=== PATIENT | female | born 1965 | race Hispanic/Latino ===

== ENCOUNTER 2018-02-19 15:27 | Inpatient (IN) | payer MEDICAID, MEDICARE, OTHER ==
[~2018-02-19] VITALS: Ht 152.4 cm; Wt 63.2 kg
[2018-02-19 16:05] LABS: APPEARANCE,URINE Clear (CLEAR); BILIRUBIN,URINE Negative (NEGATIVE); COLOR,URINE Yellow (YELLOW); GLUCOSE, URINE (UA) >=1000 mg/dL (NEGATIVE); KETONES,URINE 15 mg/dL (NEGATIVE); LEUKOCYTE ESTERASE ,URINE Negative (NEGATIVE); NITRATE,URINE Negative (NEGATIVE); OCCULT BLOOD,URINE Negative (NEGATIVE); PROTEIN,URINE Negative (NEGATIVE)
[2018-02-19 16:15] LABS: BASOPHILS % (AUTO) 1.1 % (0.0-5.0); EOSINOPHILS % (AUTO) 1.2 % (0.0-8.0); HEMATOCRIT 41.3 % (36-48); LYMPHOCYTES % (AUTO) 25.4 % (21.0-51.0); MEAN CORPUSCULAR HEMOGLOBIN 29.2 pg (27.0-33.0); MEAN CORPUSCULAR HGB CONC 34.3 g/dL (32.0-36.0); MEAN CORPUSCULAR VOLUME 85.3 fL (79-99); MONOCYTES % (AUTO) 6.6 % (3.0-13.0); NEUTROPHILS % (AUTO) 65.7 % (40.0-77.0); PLATELET COUNT (AUTO) 328 K/uL (130-400); RED BLOOD CELL COUNT(AUTO) 4.84 MIL/uL (4.00-5.50); RED CELL DISTRIBUTION WIDTH 13.6 % (11.0-15.5)
[2018-02-19 16:25] LABS: BACTERIA,URINE Rare /HPF (None Seen); RBC,URINE None Seen /HPF (0-1); WBC,URINE 0-1 /HPF (0-1)
[2018-02-19 16:28] LABS: CREATININE 0.6 mg/dL (0.5-1.5); POTASSIUM 3.6 mmol/L (3.5-5.1)
[2018-02-19 16:33] LABS: ALBUMIN 3.7 g/dL (3.5-5.0); BILIRUBIN,TOTAL 0.3 mg/dL (0.2-1.0)
[2018-02-19 19:15] VITALS: BP 114/74
[2018-02-19] MEDS ORDERED: METF10004 PO (20:16)
[2018-02-19] MEDS ORDERED: MELO-108 PO (20:16)
[2018-02-19] MEDS ORDERED: OMEP40CA37 PO (20:16)
[2018-02-19] MEDS ORDERED: SIMV10TA6 PO (20:16)
[2018-02-19] MEDS ORDERED: INVOK100TB PO (20:16)
[2018-02-19] MEDS ORDERED: TRAM-355 PO (20:16)
[2018-02-19] MEDS ORDERED: PARO-37 PO (20:16)
[2018-02-19] MEDS ORDERED: GABA-531 PO (20:16)
[2018-02-19] MEDS ORDERED: RANI150T7 PO (20:16)
[2018-02-19] MEDS ORDERED: DEXTROSE 50%-WATER 50 ML DISP.SYRIN IV PRN (20:45)
[2018-02-19] MEDS ORDERED: GLUCAGON 1MG KIT 1 MG ML IM PRN (20:45)
[2018-02-19] MEDS ORDERED: ONDANSETRON HCL 4 MG/2 ML VIAL IVP PRN (20:45)
[2018-02-19] MEDS: INSULIN R PO SSI SQ SCH (21:00)
[2018-02-19 21:54] LABS: CREATINE KINASE MB < 0.5 ng/mL (0.5-3.6); CREATINE KINASE, TOTAL 30 U/L (21-232); MYOGLOBIN 18 ng/mL (10-92); TROPONIN I < 0.04 ng/mL (0.00-0.06)
[2018-02-19] MEDS: FAMOTIDINE 20MG TAB 20 MG TAB PO SCH (22:35)
[2018-02-20] VITALS (7 sets, daily range): BP systolic 82–118; BP diastolic 59–72
[2018-02-20 06:15] LABS: MEAN CORPUSCULAR HEMOGLOBIN 29.3 pg (27.0-33.0); MEAN CORPUSCULAR HGB CONC 33.9 g/dL (32.0-36.0); MEAN CORPUSCULAR VOLUME 86.4 fL (79-99); PLATELET COUNT (AUTO) 310 K/uL (130-400); RED BLOOD CELL COUNT(AUTO) 4.51 MIL/uL (4.00-5.50); RED CELL DISTRIBUTION WIDTH 13.5 % (11.0-15.5); WHITE BLOOD COUNT (AUTO) 10.1 K/uL (4.8-10.8)
[2018-02-20] MEDS: INSULIN R PO SSI SQ SCH ×4 (06:16→20:30)
[2018-02-20 06:41] LABS: ALANINE AMINOTRANSFERASE 23 U/L (12-78); ALBUMIN 3.2 g/dL (3.5-5.0); ASPARTATE AMINOTRANSFERASE 14 U/L (10-37); BILIRUBIN,TOTAL 0.5 mg/dL (0.2-1.0); CARBON DIOXIDE 25 mmol/L (21-32); CHLORIDE 105 mmol/L (101-111); CREATINE KINASE MB < 0.5 ng/mL (0.5-3.6); CREATINE KINASE, TOTAL 22 U/L (21-232); CREATININE 0.6 mg/dL (0.5-1.5); GLOMERULAR FILTR. RATE CALC 112 mL/min (>60); GLUCOSE,RANDOM 121 mg/dL (70-105); MYOGLOBIN 24 ng/mL (10-92); POTASSIUM 3.9 mmol/L (3.5-5.1); SODIUM SERUM 140 mmol/L (136-145); TOTAL PROTEIN, SERUM 7.4 g/dL (6.0-8.3); TROPONIN I < 0.04 ng/mL (0.00-0.06); UREA NITROGEN, BLOOD 23 mg/dL (7-18)
[2018-02-20 07:29] LABS: ERYTHROCYTE SEDIMENTATION RATE 25 MM/HR (0-15)
[2018-02-20] MEDS: INVOKANA PO SCH (08:00)
[2018-02-20] MEDS ORDERED: PNEUMOCOCCAL VACCINE POLYVALENT 0.5 ML/VIAL [PPV] IM SCH (08:15)
[2018-02-20] MEDS: RANITIDINE HCL 15 MG/1 ML PO SCH ×2 (09:45→20:17)
[2018-02-20] MEDS: FAMOTIDINE 20MG TAB 20 MG TAB PO SCH ×2 (09:46→20:17)
[2018-02-20] MEDS: MELOXICAM 7.5 MG TABLET PO SCH (09:46)
[2018-02-20] MEDS: METFORMIN HCL 500 MG TABLET PO SCH ×2 (09:46→17:36)
[2018-02-20] MEDS: TRAMADOL /APAP 37.5MG/325MG TAB PO SCH ×2 (09:47→20:19)
[2018-02-20] MEDS: PANTOPRAZOLE SODIUM 40 MG TABLET.DR PO SCH (09:47)
[2018-02-20] MEDS: PAROXETINE HCL 20 MG TABLET PO SCH (12:00)
[2018-02-20] MEDS ORDERED: METOCLOPRAMIDE 10 MG/2 ML VIAL IVP PRN (12:00)
[2018-02-20 14:55] LABS: CREATINE KINASE MB < 0.5 ng/mL (0.5-3.6); CREATINE KINASE, TOTAL 24 U/L (21-232); MYOGLOBIN 23 ng/mL (10-92); TROPONIN I < 0.04 ng/mL (0.00-0.06)
[2018-02-20] MEDS ORDERED: SODIUM CHLORIDE 0.9% 500ML 500 ML IV SCH (15:00)
[2018-02-20] MEDS: ATORVASTATIN CALCIUM 10 MG TABLET PO SCH (20:17)
[2018-02-20] MEDS: GABAPENTIN 300 MG CAPSULE PO SCH (20:18)
[2018-02-20 21:56] LABS: CREATINE KINASE MB < 0.5 ng/mL (0.5-3.6); CREATINE KINASE, TOTAL 25 U/L (21-232); MYOGLOBIN 23 ng/mL (10-92); TROPONIN I < 0.04 ng/mL (0.00-0.06)
[2018-02-21] VITALS (7 sets, daily range): BP systolic 87–109; BP diastolic 61–76
[2018-02-21] MEDS: INSULIN R PO SSI SQ SCH ×4 (06:46→21:00)
[2018-02-21 06:58] LABS: BASOPHILS % (AUTO) 0.8 % (0.0-5.0); EOSINOPHILS % (AUTO) 2.6 % (0.0-8.0); HEMATOCRIT 37.9 % (36-48); LYMPHOCYTES % (AUTO) 38.9 % (21.0-51.0); MEAN CORPUSCULAR HEMOGLOBIN 29.6 pg (27.0-33.0); MONOCYTES % (AUTO) 6.7 % (3.0-13.0); PLATELET COUNT (AUTO) 291 K/uL (130-400); RED BLOOD CELL COUNT(AUTO) 4.36 MIL/uL (4.00-5.50); RED CELL DISTRIBUTION WIDTH 13.8 % (11.0-15.5); WHITE BLOOD COUNT (AUTO) 10.5 K/uL (4.8-10.8)
[2018-02-21 07:01] LABS: CREATININE 0.6 mg/dL (0.5-1.5); POTASSIUM 3.9 mmol/L (3.5-5.1)
[2018-02-21] MEDS: PANTOPRAZOLE SODIUM 40 MG TABLET.DR PO SCH (07:07)
[2018-02-21] MEDS: METFORMIN HCL 500 MG TABLET PO SCH (08:00)
[2018-02-21] MEDS: INVOKANA PO SCH (08:00)
[2018-02-21] MEDS ORDERED: SODIUM CHLORIDE 0.9% 500ML 500 ML IV SCH (12:00)
[2018-02-21] MEDS ORDERED: ISOVUE-370 50ML VIAL IV ONE (12:59)
[2018-02-21] MEDS: PAROXETINE HCL 20 MG TABLET PO SCH (13:33)
[2018-02-21] MEDS: FAMOTIDINE 20MG TAB 20 MG TAB PO SCH ×2 (13:34→20:43)
[2018-02-21] MEDS: TRAMADOL /APAP 37.5MG/325MG TAB PO SCH ×2 (13:34→20:43)
[2018-02-21] MEDS: RANITIDINE HCL 15 MG/1 ML PO SCH ×2 (13:34→20:43)
[2018-02-21] MEDS: MELOXICAM 7.5 MG TABLET PO SCH (13:39)
[2018-02-21 16:55] LABS: APPEARANCE,URINE Clear (CLEAR); BILIRUBIN,URINE Negative (NEGATIVE); COLOR,URINE Yellow (YELLOW); GLUCOSE, URINE (UA) >=1000 mg/dL (NEGATIVE); KETONES,URINE 40 mg/dL (NEGATIVE); LEUKOCYTE ESTERASE ,URINE Negative (NEGATIVE); NITRATE,URINE Negative (NEGATIVE); OCCULT BLOOD,URINE Negative (NEGATIVE); PH,URINE 6.5 (5.0-8.0); PROTEIN,URINE Negative (NEGATIVE)
[2018-02-21 17:04] LABS: BACTERIA,URINE Rare /HPF (None Seen); RBC,URINE 0-1 /HPF (0-1); SQUAMOUS EPITHELIAL CELL,UR Rare /HPF (0-2); WBC,URINE 0-1 /HPF (0-1); YEAST,URINE BUDDING Few /HPF (None Seen)
[2018-02-21] MEDS: GABAPENTIN 300 MG CAPSULE PO SCH (20:43)
[2018-02-21] MEDS: ATORVASTATIN CALCIUM 10 MG TABLET PO SCH (20:43)
[2018-02-22] VITALS: BP 114/77
[2018-02-22 03:45] VITALS: BP 110/67
[2018-02-22 05:06] LABS: MEAN CORPUSCULAR HEMOGLOBIN 30.2 pg (27.0-33.0); MEAN CORPUSCULAR VOLUME 86.2 fL (79-99); PLATELET COUNT (AUTO) 300 K/uL (130-400); RED BLOOD CELL COUNT(AUTO) 4.29 MIL/uL (4.00-5.50); RED CELL DISTRIBUTION WIDTH 13.4 % (11.0-15.5); WHITE BLOOD COUNT (AUTO) 9.2 K/uL (4.8-10.8)
[2018-02-22 05:23] LABS: BILIRUBIN,TOTAL 0.3 mg/dL (0.2-1.0); CREATININE 0.6 mg/dL (0.5-1.5); POTASSIUM 3.6 mmol/L (3.5-5.1); TOTAL PROTEIN, SERUM 6.9 g/dL (6.0-8.3)
[2018-02-22] MEDS: INSULIN R PO SSI SQ SCH (06:06)
[2018-02-22] MEDS: PANTOPRAZOLE SODIUM 40 MG TABLET.DR PO SCH (06:18)
[2018-02-22] MEDS: INVOKANA PO SCH (08:00)
[2018-02-22 08:02] VITALS: BP 107/66
[2018-02-22] MEDS: FAMOTIDINE 20MG TAB 20 MG TAB PO SCH (10:08)
[2018-02-22] MEDS: MELOXICAM 7.5 MG TABLET PO SCH (10:08)
[2018-02-22] MEDS: RANITIDINE HCL 15 MG/1 ML PO SCH (10:09)
[2018-02-22] MEDS: TRAMADOL /APAP 37.5MG/325MG TAB PO SCH (10:10)
[2018-02-22 11:54] VITALS: BP 107/73
== END 2018-02-22 14:10 | disposition home or self-care (01) | DRG 74 ==
LOC: EDH 15:27 → OBSVTOIN 18:25 → EDHIP 18:25 → 3BH 19:15
PROVIDERS: ADMIT Internal Medicine Nephrology; ATTEND Internal Medicine Nephrology
DX: G90.8 Other disorders of autonomic nervous system (principal); R55 Syncope and collapse; D72.829 Elevated white blood cell count, unspecified; E11.9 Type 2 diabetes mellitus without complications; E66.9 Obesity, unspecified; E78.5 Hyperlipidemia, unspecified; Z82.49 Family history of ischemic heart disease and other diseases of the circulatory system; Z83.3 Family history of diabetes mellitus; Z90.710 Acquired absence of both cervix and uterus; Z98.891 History of uterine scar from previous surgery; F32.9 Major depressive disorder, single episode, unspecified; F43.10 Post-traumatic stress disorder, unspecified; M19.011 Primary osteoarthritis, right shoulder; G51.0 Bell's palsy; Z68.27 Body mass index [BMI] 27.0-27.9, adult
CPT/HCPCS: 36415; 70450; 71045; 71270; 74176; 80048; 80053; 81001; 82533; 82550; 82553; 82948; 83874; 84484; 85025; 85027; 85651; 93005; 93306; 93880; J1815; J7040; Q0161; Q9967

== ENCOUNTER 2018-02-27 14:31 | Emergency (ER) | payer OTHER ==
[~2018-02-27 14:31] MED LIST: GABA-531 PO; INVOK100TB PO; MELO-108 PO; METF10004 PO; OMEP40CA37 PO; PARO-37 PO; RANI150T7 PO; SIMV10TA6 PO; TRAM-355 PO
[2018-02-27 14:52] LABS: BASOPHILS % (AUTO) 1.1 % (0.0-5.0); EOSINOPHILS % (AUTO) 1.5 % (0.0-8.0); HEMATOCRIT 41.1 % (36-48); LYMPHOCYTES % (AUTO) 31.9 % (21.0-51.0); MEAN CORPUSCULAR HGB CONC 33.5 g/dL (32.0-36.0); MEAN CORPUSCULAR VOLUME 86.5 fL (79-99); MONOCYTES % (AUTO) 5.5 % (3.0-13.0); PLATELET COUNT (AUTO) 327 K/uL (130-400); RED BLOOD CELL COUNT(AUTO) 4.75 MIL/uL (4.00-5.50); RED CELL DISTRIBUTION WIDTH 13.5 % (11.0-15.5); WHITE BLOOD COUNT (AUTO) 10.5 K/uL (4.8-10.8)
[2018-02-27 15:02] LABS: CREATININE 0.8 mg/dL (0.5-1.5); POTASSIUM 4.2 mmol/L (3.5-5.1)
[2018-02-27 15:24] LABS: ALBUMIN 3.6 g/dL (3.5-5.0); BILIRUBIN,TOTAL 0.5 mg/dL (0.2-1.0); TOTAL PROTEIN, SERUM 7.9 g/dL (6.0-8.3)
[2018-02-27 15:44] LABS: CREATINE KINASE MB < 0.5 ng/mL (0.5-3.6); CREATINE KINASE, TOTAL 47 U/L (21-232)
[2018-02-27 15:55] LABS: INR 0.91 (0.85-1.15); PARTIAL THROMBOPLASTIN TIME 26.6 SEC (26.3-35.5); PROTHROMBIN TIME 9.6 SEC (9.6-11.6)
[2018-02-27 16:13] LABS: BILIRUBIN,URINE Negative (NEGATIVE); COLOR,URINE Yellow (YELLOW); GLUCOSE, URINE (UA) Negative (NEGATIVE); KETONES,URINE Negative (NEGATIVE); LEUKOCYTE ESTERASE ,URINE Negative (NEGATIVE); NITRATE,URINE Negative (NEGATIVE); OCCULT BLOOD,URINE Negative (NEGATIVE); PH,URINE 6.5 (5.0-8.0); PROTEIN,URINE Trace (NEGATIVE)
[2018-02-27 16:15] LABS: APPEARANCE,URINE Cloudy (CLEAR)
[2018-02-27 16:21] LABS: AMPHET/METH SCREEN,URINE NEGATIVE (NEGATIVE); BARBITURATE SCREEN, URINE NEGATIVE (NEGATIVE); BENZODIAZEPINES SCREEN,URINE POSITIVE (NEGATIVE); CANNABINOID SCREEN,URINE POSITIVE (NEGATIVE); COCAINE SCREEN,URINE NEGATIVE (NEGATIVE); OPIATE SCREEN,URINE NEGATIVE (NEGATIVE); PHENCYCLIDINE SCREEN,URINE NEGATIVE (NEGATIVE)
[2018-02-27 16:27] LABS: AMORPHOUS SEDIMENT,UR Moderate /LPF (None Seen); BACTERIA,URINE Few /HPF (None Seen); RBC,URINE None Seen /HPF (0-1); SQUAMOUS EPITHELIAL CELL,UR 50-100 /HPF (0-2); WBC,URINE None Seen /HPF (0-1)
== END 2018-02-27 18:03 | disposition home or self-care (01) ==
LOC: EDH 14:31
DX: R53.1 Weakness (principal); E11.9 Type 2 diabetes mellitus without complications; F43.10 Post-traumatic stress disorder, unspecified; Z79.82 Long term (current) use of aspirin; Z79.899 Other long term (current) drug therapy
CPT/HCPCS: 36415; 80053; 80305; 81001; 82550; 82553; 84484; 85025; 85610; 85730; 93005

== ENCOUNTER → 2018-07-04 | Outpatient (CLI) | payer OTHER ==
[~2018-07-04] MED LIST changes: +METF-446 PO; -METF10004 PO
== END | disposition home or self-care (01) ==
LOC: OIH 16:46
PROVIDERS: ATTEND Family Medicine
DX: E78.5 Hyperlipidemia, unspecified (principal); M54.2 Cervicalgia; M25.512 Pain in left shoulder; M25.511 Pain in right shoulder
CPT/HCPCS: 71046; 72040; 73030

== ENCOUNTER → 2018-11-03 | Outpatient (CLI) | payer OTHER | END | disposition home or self-care (01) | LOC: RAH 10:28 | PROVIDERS: ATTEND Family Medicine | DX: M19.012 Primary osteoarthritis, left shoulder (principal) | CPT/HCPCS: 73221 ==

== ENCOUNTER → 2019-01-27 | Outpatient (CLI) | payer OTHER | END | disposition home or self-care (01) | LOC: RAH 09:25 | PROVIDERS: ATTEND Family Medicine | DX: Z12.31 Encounter for screening mammogram for malignant neoplasm of breast (principal); K76.0 Fatty (change of) liver, not elsewhere classified; Z90.710 Acquired absence of both cervix and uterus; Z78.0 Asymptomatic menopausal state | CPT/HCPCS: 76700; 76856; 77067 ==

== ENCOUNTER → 2022-07-15 | Outpatient (CLI) | payer OTHER, MEDICARE ==
[~2022-07-15] MED LIST changes: +OMEP40CA21 PO; -OMEP40CA37 PO; -SIMV10TA6 PO; +SIMV10TA97 PO
== END | disposition home or self-care (01) ==
LOC: RAH 10:10
PROVIDERS: ATTEND Internal Medicine Gastroenterology
DX: R14.0 Abdominal distension (gaseous) (principal)
CPT/HCPCS: 78264; A9541

== ENCOUNTER → 2023-01-12 | Outpatient (CLI) | payer OTHER, MEDICARE ==
[~2023-01-12] MED LIST changes: +REGADENOSON 0.4 MG/5 ML PF SYG IVP ONE
== END | disposition home or self-care (01) ==
LOC: SHCH 08:09
PROVIDERS: ATTEND Internal Medicine Cardiovascular Disease
DX: Z01.810 Encounter for preprocedural cardiovascular examination (principal); K44.9 Diaphragmatic hernia without obstruction or gangrene; I95.1 Orthostatic hypotension; E78.5 Hyperlipidemia, unspecified; E11.43 Type 2 diabetes mellitus with diabetic autonomic (poly)neuropathy; K31.84 Gastroparesis; Z79.4 Long term (current) use of insulin; Z95.818 Presence of other cardiac implants and grafts; Z79.899 Other long term (current) drug therapy
CPT/HCPCS: 78452; 96374; 93017; J2785; A9500 ×2

== ENCOUNTER 2023-05-25 09:46 | Day surgery (SDC) | payer OTHER, MEDICARE ==
[~2023-05-25] VITALS: Ht 149.9 cm; Wt 60.3 kg
[~2023-05-25 09:46] MED LIST changes: +BISA-151 PO; +ERGO500093 PO; +FAMO40TA7 PO; -GABA-531 PO; -INVOK100TB PO; +LUBI24CA9 PO; -MELO-108 PO; +MIDO5TAB4 PO; -OMEP40CA21 PO; +ONDA4TAB10 PO; -PARO-37 PO; -RANI150T7 PO; -REGADENOSON 0.4 MG/5 ML PF SYG IVP ONE; +ROSU5TAB12 PO; -SIMV10TA97 PO; -TRAM-355 PO
[2023-05-25 11:19] VITALS: BP 118/65; PULSE 74; RESP 16
[2023-05-25] MEDS ORDERED: PROPOFOL 10 MG/ML 20ML VIAL IV ONE (13:26)
== END 2023-05-25 14:15 ==
LOC: DAH 09:46 → ENDO 09:46
PROVIDERS: ATTEND Internal Medicine Gastroenterology
DX: R10.816 Epigastric abdominal tenderness (principal); K31.89 Other diseases of stomach and duodenum; K31.84 Gastroparesis; K29.50 Unspecified chronic gastritis without bleeding; F41.9 Anxiety disorder, unspecified; E11.9 Type 2 diabetes mellitus without complications; M19.90 Unspecified osteoarthritis, unspecified site; K21.9 Gastro-esophageal reflux disease without esophagitis; E78.00 Pure hypercholesterolemia, unspecified; F32.A Depression, unspecified; E78.5 Hyperlipidemia, unspecified; I10 Essential (primary) hypertension; Z90.49 Acquired absence of other specified parts of digestive tract; Z90.710 Acquired absence of both cervix and uterus; Z79.899 Other long term (current) drug therapy; Z98.890 Other specified postprocedural states; Z86.010 Personal history of colon polyps; Z79.84 Long term (current) use of oral hypoglycemic drugs
CPT/HCPCS: 82948; 43239; J2704; A4215 ×2; A4223; A7002; A4222; A4221; A4663; A4216; J7030; A4606; J3490

== ENCOUNTER 2024-05-25 05:59 | Day surgery (SDC) | payer OTHER, MEDICARE ==
[~2024-05-25] VITALS: Ht 152.4 cm; Wt 60.3 kg
[2024-05-25] VITALS (11 sets, daily range): BP systolic 94–112; BP diastolic 44–85; PULSE 72–86; RESP 14–16; TEMP 96.5–97.8
[~2024-05-25 05:59] MED LIST changes: -BISA-151 PO; +CELE-146 PO; +CITA-108 PO; +CYAN-106 PO; +EMPA25TA PO; -ERGO500093 PO; +GABA-529 PO; +LINA145C PO; -LUBI24CA9 PO; +OMEP20CA12 PO; +ONDA-243 PO; -ONDA4TAB10 PO; -ROSU5TAB12 PO; +ROSU5TAB43 PO; +SUCR1TAB2 PO
[2024-05-25] MEDS: 0.9%NACL 1000ML 1,000 ML IV ONE (07:06)
[2024-05-25] MEDS ORDERED: proPOFol 10 MG/ML 20ML VIAL IV ONE ×2 (07:45→08:11)
[2024-05-25] MEDS ORDERED: LIDOCAINE PF 100MG/5ML (2%) SYRINGE 5ML ONE (07:46)
== END 2024-05-25 09:20 | disposition home or self-care (01) ==
LOC: DAH 05:59 → ENDO 05:59
PROVIDERS: ATTEND Internal Medicine Gastroenterology
DX: R10.816 Epigastric abdominal tenderness (principal); K29.50 Unspecified chronic gastritis without bleeding; K22.89 Other specified disease of esophagus; K31.89 Other diseases of stomach and duodenum; F41.9 Anxiety disorder, unspecified; M19.90 Unspecified osteoarthritis, unspecified site; F32.A Depression, unspecified; K21.9 Gastro-esophageal reflux disease without esophagitis; K31.84 Gastroparesis; K44.9 Diaphragmatic hernia without obstruction or gangrene; E78.00 Pure hypercholesterolemia, unspecified; Z90.49 Acquired absence of other specified parts of digestive tract; Z90.710 Acquired absence of both cervix and uterus; Z98.891 History of uterine scar from previous surgery; Z98.890 Other specified postprocedural states; Z98.49 Cataract extraction status, unspecified eye; Z79.899 Other long term (current) drug therapy; Z98.0 Intestinal bypass and anastomosis status
CPT/HCPCS: 43239; 82948 ×2; J7030; J2001; J2704 ×2; A4620; A4215 ×2; A4223; A4222; A4221; A4663; A4606; J3490

== ENCOUNTER → 2024-07-24 | Outpatient (CLI) | payer OTHER, MEDICARE ==
[~2024-07-24] MED LIST changes: -ROSU5TAB43 PO; +ROSU5TAB51 PO
== END | disposition home or self-care (01) ==
LOC: LAB 14:30
PROVIDERS: ATTEND Internal Medicine Cardiovascular Disease
DX: G90.9 Disorder of the autonomic nervous system, unspecified (principal); I95.1 Orthostatic hypotension; Z11.59 Encounter for screening for other viral diseases; Z79.899 Other long term (current) drug therapy
CPT/HCPCS: 36415; 82607; 86592

== ENCOUNTER 2024-11-02 06:18 | Day surgery (SDC) | payer OTHER, MEDICARE ==
[2024-11-02] VITALS (10 sets, daily range): BP systolic 91–112; BP diastolic 45–65; PULSE 67–93; RESP 14–17; TEMP 97.1–207.7
[~2024-11-02] VITALS: Ht 152.4 cm; Wt 59.0 kg
[~2024-11-02 06:18] MED LIST changes: -GABA-529 PO; +GABA300C PO; -LINA145C PO; -METF-446 PO; +METF-527 PO; -ONDA-243 PO; -SUCR1TAB2 PO
[2024-11-02] MEDS: 0.9%NACL 1000ML 1,000 ML IV ONE (07:59)
[2024-11-02] MEDS ORDERED: proPOFol 10 MG/ML 20ML VIAL IV ONE (08:50)
== END 2024-11-02 10:15 | disposition home or self-care (01) ==
LOC: DAH 06:18 → ENDO 06:18
PROVIDERS: ATTEND Surgery
DX: K30 Functional dyspepsia (principal); K29.50 Unspecified chronic gastritis without bleeding; K44.9 Diaphragmatic hernia without obstruction or gangrene; K31.84 Gastroparesis; K59.04 Chronic idiopathic constipation; K22.89 Other specified disease of esophagus; K31.89 Other diseases of stomach and duodenum; E11.9 Type 2 diabetes mellitus without complications; M19.90 Unspecified osteoarthritis, unspecified site; E78.00 Pure hypercholesterolemia, unspecified; K21.9 Gastro-esophageal reflux disease without esophagitis; F41.9 Anxiety disorder, unspecified; Z90.49 Acquired absence of other specified parts of digestive tract; Z90.710 Acquired absence of both cervix and uterus; Z79.899 Other long term (current) drug therapy
CPT/HCPCS: 82948 ×2; 43239; J7030 ×2; J2704; A4620; A4215; A4223; A7002; A4222; A4221; A4663; A4606; J3490

== ENCOUNTER 2025-07-08 16:22 | Inpatient (IN) | payer OTHER, MEDICAID ==
[~2025-07-08] VITALS: Ht 152.4 cm; Wt 58.4 kg
[2025-07-08 16:34] LABS: IMMATURE GRANULOCYTE ABSOLUTE 0.04 K/uL (0-1); NUCLEATED RED BLOOD CELLS 0.0 % (0.0-0.19); PLATELET COUNT (AUTO) 317 K/uL (130-400); RED BLOOD CELL COUNT(AUTO) 4.40 MIL/uL (4.00-5.50); RED CELL DISTRIBUTION WIDTH 13.0 % (11.0-15.5); WHITE BLOOD COUNT (AUTO) 10.6 K/uL (4.8-10.8)
--- NOTE | 2025-07-08 16:56 | ERN ---
General Chief Complaint: Other Problems Stated Complaint: LOW BLOOD PRESSURE Time Seen by MD: 16:24 Source: patient History of Present Illness Initial Comments Patient is a 60-year-old female coming in complaining of generalized body weakness. Family members brought the patient in as she became unresponsive. She states that she became hypotensive in his here for further evaluation. She does has a history of diabetes mellitus. Allergies: Coded Allergies: No Allergy Information Available (Verified Allergy, Unknown, 02/19/18) No Known Drug Allergies (Unverified Allergy, Unknown, 02/19/23) Home Meds Reported Medications Gabapentin (Neurontin) 300 Mg Capsule, 300 MG PO HS, CAP 11/01/24 Empagliflozin (Jardiance) 25 Mg Tablet, 1 TAB PO DAILY for 30 Days, #30 TAB 0 Refills 11/01/24 Metformin HCl (Metformin HCl ER) 1,000 Mg Tab.er.24, 1000 MG PO BID 11/01/24 Citalopram Hydrobromide (Citalopram HBr) 40 Mg Tablet, 40 MG PO DAILY, TAB 05/10/24 Celecoxib (Celecoxib) 100 Mg Capsule, 100 MG PO BID PRN for PAIN, CAP 05/10/24 Famotidine (Famotidine) 40 Mg Tablet, 40 MG PO HS, TAB 05/10/24 Cyanocobalamin (Vitamin B-12) (Vitamin B12) 1,000 Mcg Tablet, 1000 MCG PO DAILY, TAB 05/10/24 Rosuvastatin Calcium (Rosuvastatin Calcium) 5 Mg Tablet, 5 MG PO HS, TAB 05/10/24 Omeprazole (Omeprazole) 20 Mg Capsule.dr, 20 MG PO DAILY, CAP 05/10/24 Midodrine HCl (Midodrine HCl) 5 Mg Tablet, 5 MG PO BID, TAB 02/19/23 Past Medical History Past Medical History: Arthritis, Diabetes-Type II Medical History Other: ORTHOSTATIC HYPOTENSION Past Surgical History: None ROS Dictation CONSTITUTIONAL: No chills, no fever, no weakness, no diaphoresis, no malaise. HEAD/FACE: No signs of trauma. EENT: No eye pain, no blurred vision, no tearing, no double vision, no ear pain, no ear discharge, no nose pain, no nasal congestion, no throat pain, no throat swelling, no mouth pain. RESPIRATORY: No cough, no orthopnea, no SOB, no stridor, no wheezing. CARDIOVASCULAR: No chest pain, no edema, no palpitations, no syncope. GASTROINTESTINAL/ABDOMINAL: No abdominal pain, no constipation, no diarrhea, no nausea, no vomiting. GENITOURINARY: No abnormal discharge, no dysuria, no frequent urination, no hematuria. No complaints of pain in the genitals. MUSCULOSKELETAL: No back pain, no gout, no joint pain, no joint swelling, no muscle pain, no muscle stiffness, no neck pain. INTEGUMENTARY: No change in color, no change in hair/nails, no dryness, no lesion, no lumps, no rash. NEUROLOGICAL/PSYCH: No anxiety, not depressed, no emotional problem, no headache, no numbness, no pre-existing deficit, no history of seizures, no tremors, no weakness. HEMATOLOGIC/LYMPHATIC: Not anemic, no history of blood clots, no apparent bleed ing, no bruising, glands not swollen. All Systems Negative, Except as Noted. Physical Exam Physical Exam Dictation VITAL SIGNS: Reviewed. GENERAL APPEARANCE: Alert, oriented x3, no acute distress, obese. HEAD AND FACE: Non-traumatic. EYES: PERRL, pink conjunctivas, eyelid no trauma, anterior chamber clear. EARS: Pinnas intact and no signs of trauma or erythema. Ear canals clear and no discharge. TMs no erythema. NOSE: No discharge, no bleeding. OROPHARYNX: Mouth normal, teeth no caries, tongue pink. Pharynx clear, no erythema. Tonsils no exudates, no abscesses noted. Mucous membrane moist. NECK: Supple, non-tender, no thyromegaly, no masses, no JVD, no bruits. BREAST: Deferred. CHEST: No tenderness, no crepitus, no paradoxical movement, no retractions. LUNGS: Clear, well-ventilated, symmetric, no rales, no wheezing, no rhonchi, no stridor, good breath sounds bilaterally. HEART: Regular rate, regular rhythm, no murmur, no gallops. VASCULAR: No peripheral edema. ABDOMEN: Soft, positive bowel sounds, nondistended, no guarding, nontender, no rebound, no masses no hepatomegaly, no splenomegaly, no Pillai's sign, no hernias. RECTAL: Deferred. GENITAL: Deferred. NEUROLOGICAL: Normal speech, gross motor function intact, gross sensory function intact. MUSCULOSKELETAL: Neck nontender, full range of motion, back nontender, full range of motion. EXTREMITIES: Nontender, full range of motion. SKIN: Color pink, dry, no turgor, no rash, no lacerations, no abrasions, no contusions. LYMPHATICS: Deferred. Results Laboratory and Microbiology Lab and Micro Result Laboratory Tests Test 07/08/25 16:28 07/08/25 18:10 White Blood Count 10.6 K/uL (4.8-10.8) Red Blood Count 4.40 MIL/uL (4.00-5.50) Hemoglobin 13.2 g/dL (12.0-16.0) Hematocrit 40.9 % (36-48) Mean Corpuscular Volume 93.0 fL (79-99) Mean Corpuscular Hemoglobin 30.0 pg (27.0-33.0) Mean Corpuscular Hemoglobin Concent 32.3 g/dL (32.0-36.0) Red Cell Distribution Width 13.0 % (11.0-15.5) Platelet Count 317 K/uL (130-400) Mean Platelet Volume 9.7 fL (7.5-10.5) Immature Granulocyte % (Auto) 0.4 % (0-1) Neutrophils (%) (Auto) 57.2 % (40.0-77.0) Lymphocytes (%) (Auto) 32.4 % (21.0-51.0) Monocytes (%) (Auto) 6.1 % (3.0-13.0) Eosinophils (%) (Auto) 3.1 % (0.0-8.0) Basophils (%) (Auto) 0.8 % (0.0-5.0) Neutrophils # (Auto) 6.1 K/uL (1.8-7.7) Lymphocytes # (Auto) 3.4 K/uL (1.0-4.8) Monocytes # (Auto) 0.7 K/uL (0.1-1.0) Eosinophils # (Auto) 0.33 K/uL (0.00-0.70) Basophils # (Auto) 0.09 K/uL (0.00-0.20) Absolute Immature Granulocyte (auto 0.04 K/uL (0-1) Nucleated Red Blood Cells 0.0 % (0.0-0.19) Activated Partial Thromboplast Time 25.9 SEC (26.3-35.5) L Sodium Level 141 mmol/L (136-145) Potassium Level 4.1 mmol/L (3.5-5.1) Chloride Level 103 mmol/L (101-111) Carbon Dioxide Level 28 mmol/L (21-32) Blood Urea Nitrogen 15 mg/dL (7-18) Creatinine 0.5 mg/dL (0.5-1.0) Glomerular Filtration Rate Calc 109 mL/min (>90) Random Glucose 177 mg/dL (70-105) H Total Calcium 9.0 mg/dL (8.5-10.1) Magnesium Level 2.10 mg/dL (1.80-2.40) Total Creatine Kinase 26 U/L (21-232) # Troponin I High Sensitivity < 4 ng/L (4-50) L Urine Color LIGHT-YELLOW (YELLOW) Urine Appearance CLEAR (CLEAR) Urine pH 6.0 (5.0-8.0) Urine Specific [place] 1.016 (1.001-1.031) Urine Protein NEGATIVE mg/dL (NEGATIVE) Urine Glucose (UA) >=1000 mg/dL (NEGATIVE) H Urine Ketones NEGATIVE mg/dL (NEGATIVE) Urine Occult Blood NEGATIVE (NEGATIVE) Urine Nitrate NEGATIVE (NEGATIVE) Urine Bilirubin NEGATIVE mg/dL (NEGATIVE) Urine Urobilinogen 0.2 mg/dL (0.2-1.0) Urine Leukocyte Esterase NEGATIVE [place]/uL Urine RBC 0-1 /HPF (0-1) Urine WBC 0-1 /HPF (0-1) Urine Squamous Epithelial Cells RARE /HPF (0-2) Urine Bacteria RARE /HPF (None Seen) Urine Opiates Screen NEGATIVE (NEGATIVE) Urine Barbiturates Screen NEGATIVE (NEGATIVE) Urine Phencyclidine Screen NEGATIVE (NEGATIVE) Urine Amphetamines Screen NEGATIVE (NEGATIVE) Urine Benzodiazepines Screen NEGATIVE (NEGATIVE) Urine Cocaine Screen NEGATIVE (NEGATIVE) Urine Marijuana (THC) Screen NEGATIVE (NEGATIVE) Labs Reviewed?: Yes EKG/XRAY/US/CT/MRI EKG Comment 07/08/2025 time 4:28 p.m. Ventricular rate 74 Sinus rhythm [place] [address] wave elevation or depression X-RAY Comment IMAGING REPORT Signed PATIENT: ANAMIKA LEDEZMA MR#: [id number] : 1965 SEX: F AGE: 60 LOCATION: [facility] ORDER 24 STATUS: [facility] REPORT#: [id number] SERVICE 23 REASON: cp ORDERING PHYSICIAN: MARGIE ALVARADO MD PROCEDURE: CXR1VW - CHEST 1VW EXAM: CR Chest, 1 View. CLINICAL HISTORY: cp COMPARISON: None provided. FINDINGS: LUNGS: The lungs show no infiltrate or other acute finding. PLEURAL SPACES: No evidence of pleural effusion or pneumothorax. MEDIASTINUM: The cardiomediastinal silhouette is within normal limits. BONES: No aggressive appearing osseous lesion seen. IMPRESSION: No acute cardiopulmonary pathology is evident. /[place] DICTATED BY: BOBBY SANTAMARIA MD DATE: 07/08/251832 ELECTRONICALLY SIGNED BY: BOBBY SANTAMARIA MD DATE: 07/08/251832 CT Scan Comment IMAGING REPORT Signed PATIENT: ANAMIKA LEDEZMA MR#: [id number] : 1965 SEX: F AGE: 60 LOCATION: ED ORDER 03 STATUS: [facility] REPORT#: [id number] SERVICE 02 REASON: headache ORDERING PHYSICIAN: MARGIE ALVARADO MD PROCEDURE: HEAD WO - CT HEAD/BRAIN W/O CONTRAST EXAM: CT Head Without IV contrast. CLINICAL HISTORY: headache TECHNIQUE: Axial computed tomography images of the head/brain without intravenous contrast. COMPARISON: None provided. FINDINGS: BRAIN: No evidence of acute hemorrhage. No mass lesion. No CT evidence for acute territorial infarct. No midline shift or extra-axial collections. VENTRICLES: No hydrocephalus. ORBITS: The orbits are unremarkable. SINUSES AND MASTOIDS: The paranasal sinuses and mastoid air cells are clear. BONES: No fracture. SOFT TISSUES: Unremarkable. IMPRESSION: No acute intracranial abnormality. /[place] DICTATED BY: BOBBY SANTAMARIA MD DATE: 07/08/251833 ELECTRONICALLY SIGNED BY: BOBBY SANTAMARIA MD DATE: 07/08/251833 [facility] MDM: Differential diagnosis: Syncope, hypotension, Rationale: Tests considered and ordered secondary to shared decision making include: Previous outside records reviewed: Old ER visits. Risk of complication and/or morbidity or mortality of patient management: None Medications-Per medication reconciliation Need for hospitalization: Patient does meet criteria for hospitalization. Need for emergency major/minor surgery: No There are no social concerns with this patient. Prescription drug management Prescriptions will include symptomatic care Patient's prior external medical records from other ER visits were reviewed by me as indicated. Prior testing and results from previous visits were reviewed. Prior tests were taken into account with medical decision making and resource utilization, independent historian/historians were used to obtain complete medical history. I independently interpreted the test that were performed, results were reviewed by me and considered findings on radiology if ordered. Medical management and examination interpretation discussions were had by me with other qualified healthcare professionals as indicated for the patient's care. In his is a 60-year-old female coming in after she passed out. Family members brought patient in upon evaluation in triage patient was stay out due to a syncopal episode and hypotension. With these findings patient will be admitted under the care of [facility] for ongoing evaluation and management. ED Course Orders Procedure Category Date Status Time Cbc With Differential LAB 07/08/25 Complete 16:24 Chest 1vw RAD 07/08/25 Resulted 16:24 12 Lead Ekg Tracing- EKG 07/08/25 Logged Technical 16:24 Magnesium LAB 07/08/25 Complete 16:24 Creatine Kinase, Total LAB 07/08/25 Complete 16:24 Troponin I High LAB 07/08/25 Complete Sensitivity 16:24 Urinalysis Profile LAB 07/08/25 Complete 16:24 Partial LAB 07/08/25 Complete Thromboplastin Time 16:24 Basic Metabolic Panel LAB 07/08/25 Complete 16:24 0.9%Nacl 1000ml (Ns PHA 07/08/25 Complete 1000ml) 16:30 Drug Screen Urine LAB 07/08/25 Complete 16:24 Ct Head/Brain W/O CT 07/08/25 Resulted Contrast 17:03 Current Medications Medications (Trade) Dose Ordered Sig/Keila Route PRN Reason Start Time Stop Time Status Last Admin Dose Admin Sodium Chloride 1,000 ml @ 0 mls/hr ONCE ONCE IV 07/08/25 16:30 07/08/25 16:31 DC 07/08/25 17:22 Vital Signs Date Time Temp Pulse Resp B/P (MAP) Pulse Ox O2 Delivery O2 Flow Rate FiO2 07/08/25 17:32 98.2 72 15 112/56 97 Room Air* 0 21 07/08/25 16:24 97.9 85 18 138/56 100 Room Air 0 DX & DISP Disposition: Inpatient Decision to Admit Time: 18:38 Departure Impression: Primary Impression: Hypotension Additional Impression: Syncope Condition: Stable Referrals: JUNIOR SMILEY MD (PCP) MARGIE ALVARADO MD Jul 08, 2025 16:56
[2025-07-08 16:59] LABS: CREATININE 0.5 mg/dL (0.5-1.0); GLOMERULAR FILTR. RATE CALC 109.0 mL/min (>90); GLUCOSE,RANDOM 177.0 mg/dL (70-105); SODIUM SERUM 141.0 mmol/L (136-145); UREA NITROGEN, BLOOD 15.0 mg/dL (7-18)
[2025-07-08 17:08] LABS: CREATINE KINASE, TOTAL 26.0 U/L (21-232)
[2025-07-08] MEDS: 0.9%NACL 1000ML 1,000 ML IV ONE (17:22)
--- NOTE | 2025-07-08 17:34 | HMCIMG ---
EXAM: CR Chest, 1 View. CLINICAL HISTORY: cp COMPARISON: None provided. FINDINGS: LUNGS: The lungs show no infiltrate or other acute finding. PLEURAL SPACES: No evidence of pleural effusion or pneumothorax. MEDIASTINUM: The cardiomediastinal silhouette is within normal limits. BONES: No aggressive appearing osseous lesion seen. IMPRESSION: No acute cardiopulmonary pathology is evident. /[place]
--- NOTE | 2025-07-08 17:34 | HMCIMG ---
EXAM: CT Head Without IV contrast. CLINICAL HISTORY: headache TECHNIQUE: Axial computed tomography images of the head/brain without intravenous contrast. COMPARISON: None provided. FINDINGS: BRAIN: No evidence of acute hemorrhage. No mass lesion. No CT evidence for acute territorial infarct. No midline shift or extra-axial collections. VENTRICLES: No hydrocephalus. ORBITS: The orbits are unremarkable. SINUSES AND MASTOIDS: The paranasal sinuses and mastoid air cells are clear. BONES: No fracture. SOFT TISSUES: Unremarkable. IMPRESSION: No acute intracranial abnormality. /[place]
[2025-07-08 18:23] LABS: ADD UA MICROSCOPIC YES; APPEARANCE,URINE CLEAR (CLEAR); GLUCOSE, URINE (UA) >=1000 mg/dL (NEGATIVE); LEUKOCYTE ESTERASE ,URINE NEGATIVE Leu/uL (NEGATIVE); NITRATE,URINE NEGATIVE (NEGATIVE); OCCULT BLOOD,URINE NEGATIVE (NEGATIVE)
[2025-07-08 18:24] LABS: SQUAMOUS EPITHELIAL CELL,UR RARE /HPF (0-2)
[2025-07-08 18:27] LABS: AMPHET/METH SCREEN,URINE NEGATIVE (NEGATIVE); BARBITURATE SCREEN, URINE NEGATIVE (NEGATIVE); CANNABINOID SCREEN,URINE NEGATIVE (NEGATIVE); COCAINE SCREEN,URINE NEGATIVE (NEGATIVE)
--- NOTE | 2025-07-08 20:52 | HP ---
[facility] HISTORY & PHYSICAL Date Patient Seen: Jul 08, 2025 Time of Visit: 20:43 Supervising Physician: Dr. Michaela Mckeon Primary Care Physician: Yari Palm Outpatient Specialists: [ ] Inpatient Consults: [ ] PROBLEM LIST: Syncopal episode, likely from orthostatic hypotension, chronic, POA Autonomic dysfunction, likely from uncontrolled diabetes POA Orthostatic hypotension DM type 2, with hyperglycemia, POA Chronic hypotension, on midodrine, POA Hyperlipidemia Gastroparesis as s/p gastric stimulator implant PLAN: Admit to medical-surgical floor with telemetry VS per unit protocol Limit sedation Complete bedrest with bathroom privileges Heart healthy diet Orthostatic VS Q shift Keep serum glucose less than 150 ISS and fingerstick per unit protocol Continue IV fluids Bilateral SCDs CBC, CMP, magnesium level daily HPI: 60-year-old female with past medical history of DM type 2, hyperlipidemia, autonomic dysfunction, orthostatic hypotension, gastroparesis status post gastric stimulator implant who presented to ED with complaint of syncopal episode. Patient was seen and examined in ED with present at bedside. Apparently this is a chronic problem that has been ongoing for almost three years, was previously evaluated by Neurology and underwent tilt-table test and was informed that she has orthostatic hypotension, was also evaluated by Cardiology and underwent rhythm monitoring via loop recorder, with no abnormality seen. 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 Today patient had episode of syncope while she was inside the car. Patient was then brought in by to ER for further medical evaluation. Initial CBC and chemistry were unremarkable, UDS negative for intoxication, CT head and chest x-ray were also unremarkable. In ED patient was given IV bolus, with improvement in her blood pressure. At present patient is currently hemodynamically stable, with SBP above 110 mmHg, normal sinus rhythm on the monitor, GCS 15, denies any headache, chest pain, cough, fever, abdominal pain, diarrhea, or flu-like symptoms. Patient denies any smoking, alcohol intake, or illicit drug use. PAST MEDICAL HX: see above PAST SURGICAL HX: noncontributory SOCIAL HISTORY: No tobacco, ETOH, or illicit drug use Coded Allergies: No Allergy Information Available (Verified Allergy, Unknown, 02/19/18) No Known Drug Allergies (Unverified Allergy, Unknown, 02/19/23) REVIEW OF SYSTEMS: 12 point ROS reviewed with patient. Pertinent positives mentioned above. Otherwise negative. PHYSICAL EXAM: GENERAL: alert, weak, awake oriented x 3 HEENT: EOMI, Sclera non icteric, moist mucosa NECK: Supple, no JVD, trachea midline LUNGS: Clear breath sounds bilaterally. No wheezes HEART: Regular rate and rhythm. Normal S1 and S2, without murmurs ABD: Abdomen soft, nontender. Bowel sounds present EXT: No clubbing cyanosis or edema NEURO: Alert and oriented to person, follows commands Vital Signs (last 8hr) Date Time Temp Pulse Resp B/P (MAP) Pulse Ox O2 Delivery O2 Flow Rate FiO2 07/08/25 17:32 98.2 72 15 112/56 97 Room Air* 0 21 07/08/25 16:24 97.9 85 18 138/56 100 Room Air 0 LABS: Hematology Labs: Test 07/08/25 16:28 Range/Units White Blood Count 10.6 4.8-10.8 K/uL Red Blood Count 4.40 4.00-5.50 MIL/uL Hemoglobin 13.2 12.0-16.0 g/dL Hematocrit 40.9 36-48 % Mean Corpuscular Volume 93.0 79-99 fL Mean Corpuscular Hemoglobin 30.0 27.0-33.0 pg Mean Corpuscular Hemoglobin Concent 32.3 32.0-36.0 g/dL Red Cell Distribution Width 13.0 11.0-15.5 % Platelet Count 317 130-400 K/uL Mean Platelet Volume 9.7 7.5-10.5 fL Immature Granulocyte % (Auto) 0.4 0-1 % Neutrophils (%) (Auto) 57.2 40.0-77.0 % Lymphocytes (%) (Auto) 32.4 21.0-51.0 % Monocytes (%) (Auto) 6.1 3.0-13.0 % Eosinophils (%) (Auto) 3.1 0.0-8.0 % Basophils (%) (Auto) 0.8 0.0-5.0 % Neutrophils # (Auto) 6.1 1.8-7.7 K/uL Lymphocytes # (Auto) 3.4 1.0-4.8 K/uL Monocytes # (Auto) 0.7 0.1-1.0 K/uL Eosinophils # (Auto) 0.33 0.00-0.70 K/uL Basophils # (Auto) 0.09 0.00-0.20 K/uL Absolute Immature Granulocyte (auto 0.04 0-1 K/uL Nucleated Red Blood Cells 0.0 0.0-0.19 % Chemistry Labs: Test 07/08/25 16:28 Range/Units Sodium Level 141 136-145 mmol/L Potassium Level 4.1 3.5-5.1 mmol/L Chloride Level 103 101-111 mmol/L Carbon Dioxide Level 28 21-32 mmol/L Blood Urea Nitrogen 15 7-18 mg/dL Creatinine 0.5 0.5-1.0 mg/dL Glomerular Filtration Rate Calc 109 >90 mL/min Random Glucose 177 H 70-105 mg/dL Total Calcium 9.0 8.5-10.1 mg/dL Magnesium Level 2.10 1.80-2.40 mg/dL Total Creatine Kinase 26 # 21-232 U/L Troponin I High Sensitivity < 4 L 4-50 ng/L Coagulation Labs: Test 07/08/25 16:28 Range/Units Activated Partial Thromboplast Time 25.9 L 26.3-35.5 SEC DIAGNOSTICS / RADIOLOGY RESULTS: EXAM: CT Head Without IV contrast. CLINICAL HISTORY: headache TECHNIQUE: Axial computed tomography images of the head/brain without intravenous contrast. COMPARISON: None provided. FINDINGS: BRAIN: No evidence of acute hemorrhage. No mass lesion. No CT evidence for acute territorial infarct. No midline shift or extra-axial collections. VENTRICLES: No hydrocephalus. ORBITS: The orbits are unremarkable. SINUSES AND MASTOIDS: The paranasal sinuses and mastoid air cells are clear. BONES: No fracture. SOFT TISSUES: Unremarkable. IMPRESSION: No acute intracranial abnormality. PLAN NEURO: Minimize central acting medications as possible. Maintain fall precautions, adequate lighting during the day PULMONARY: Supplemental 02 as needed. Maintain aspiration precautions at all times CARDIOVASCULAR: Follow hemodynamics. Vital signs per facility protocol GI & NUTRITION: Continue with nutritional support. Continue stool softeners and laxatives as needed. KIDNEYS & ELECTROLYTES: Strict monitoring of intake, output and overall fluid balance. Avoid nephrotoxic medications to the extent possible. Medications to be dosed according to renal function. Monitor electrolytes and replace as needed ENDOCRINE: Maintain blood glucose between 100-180 at all times. Hypoglycemia protocol in place INFECTIOUS DISEASE: Trend temperature, WBC and procalcitonin level Follow cultures, deescalate antibiotics as soon as possible. Panculture if new onset fever ONCOLOGY/HEMATOLOGY/COAGULATION: Monitor for s/s of bleeding Monitor hemoglobin, coagulation studies as needed SKIN: Pressure ulcer prevention per facility protocol Specialty mattress ORTHO/REHAB: Continue PT/OT Prophylaxis: Continue GI and DVT prophylaxis Code Status: Full Resuscitation Disposition: TBD Supervising physician: Dr. Michaela SHEARER,CM Rowe [facility] Jul 08, 2025 20:52
[2025-07-08] MEDS ORDERED: ALBUTEROL 0.083% 2.5 MG/3 ML INH IH PRN (21:00)
[2025-07-08] MEDS: LACTATED RINGERS 1000ML 1,000 ML IV SCH (21:17)
[2025-07-08 21:45] VITALS: PULSE 76; RESP 18; O2SAT 99
--- NOTE | 2025-07-08 22:32 | NUR ---
REPORT GIVEN TO NURSE JASON, ALL QUESTIONS ANSWERED AT THIS TIME
[2025-07-08 22:40] VITALS: BP 107/64; PULSE 70; RESP 20; TEMP 98
[2025-07-08 22:41] VITALS: BP 105/63; PULSE 70; RESP 20
[2025-07-08 22:44] VITALS: BP 98/55; PULSE 70; RESP 20; TEMP 98
[2025-07-08] MEDS ORDERED: DULO60CA64 PO (23:19)
[2025-07-08] MEDS ORDERED: ONDA-245 PO (23:19)
[2025-07-08] MEDS ORDERED: BUSP10TA3 PO (23:19)
[2025-07-08] MEDS ORDERED: HYDR-3421 PO (23:19)
--- NOTE | 2025-07-08 23:42 | NUR ---
ADMIT PT ADMITTED TO ROOM 319 AAOX4. PT CLAIMS OF DIZZINESS WITH SUDDEN MOVEMENT. ADMISSION CARE DONE. ADMISSION ASSESSMENT DONE, PLEASE REFER TO CHART. PCP MONITORED, V/S, STABLE. CHANGED PT'S CLOTHES TO HOSPITAL GOWN. CONTINUED IVF OF LR FROM ER REGULATED AT 125CC/HR. PLACED PT ON TELE MONITOR, SR WITH BBB, HR=67 BPM. SCD'S APPLIED TO BLE. ADMISSION DATA BASE COMPLETED. HOME MEDS UPDATED IN THE SYSTEM. ORIENTED TO ROOM AND UNIT. IN FOR MORE CARE AND MANAGEMENT. Addendum: 07/09/25 at 0046 by EREN NOE RN RN Amended: Links added.
[2025-07-08 23:45] VITALS: O2SAT 99
--- NOTE | 2025-07-09 02:40 | EKG ---
[facility] Test Date: 2025-07-08 Test Time: 16:28:14 Pat Name: ANAMIKA LEDEZMA Department: [facility] Room: 319 1 Gender: F [employer] Technician: [id number] : 1965 Requested By: MARGIE ALVARADO Order Number: [id number] Reading MD: Luis Rivera Measurements Intervals [place] Rate: 74 P: 41 CO: 167 QRS: -49 QRSD: 131 T: 24 QT: 405 QTc: 449 Interpretive Statements Sinus rhythm RBBB and LAFB Compared to ECG 05/10/2024 11:40:35 No significant changes Electronically Signed On 07-09-2025 20:30:39 CDT by Luis Rivera Please click the below link to view image of tracing.
[2025-07-09 04:07] VITALS: BP 99/55; PULSE 72; RESP 19; TEMP 98.2
--- NOTE | 2025-07-09 05:03 | NUR ---
ROUNDS PT STILL FAIRLY ASLEEP WITH RESPIRATIONS EVEN AND UNLABORED. NO NOTED DISTRESS. KEPT UNDISTURBED FOR NOW. CALL LIGHT WITHIN REACH. FAMILY ASLEEP IN ROOM. FOR MORE CARE.
[2025-07-09 05:47] LABS: IMMATURE GRANULOCYTE ABSOLUTE 0.01 K/uL (0-1); NUCLEATED RED BLOOD CELLS 0.0 % (0.0-0.19); PLATELET COUNT (AUTO) 301 K/uL (130-400); RED BLOOD CELL COUNT(AUTO) 4.03 MIL/uL (4.00-5.50); RED CELL DISTRIBUTION WIDTH 13.1 % (11.0-15.5); WHITE BLOOD COUNT (AUTO) 9.7 K/uL (4.8-10.8)
[2025-07-09 06:01] LABS: CREATININE 0.3 mg/dL (0.5-1.0); GLOMERULAR FILTR. RATE CALC 123.0 mL/min (>90); GLUCOSE,RANDOM 103.0 mg/dL (70-105); PHOSPHORUS 4.1 mg/dL (2.5-4.9); SODIUM SERUM 143.0 mmol/L (136-145); UREA NITROGEN, BLOOD 9.0 mg/dL (7-18)
[2025-07-09 06:26] VITALS: RESP 18; O2SAT 99
[2025-07-09 08:00] VITALS: BP_SYST 115; BP_SYST 128; BP_SYST 148; BP_DIAS 62; BP_DIAS 65; BP_DIAS 98; PULSE 76; RESP 15; TEMP 98.3
--- NOTE | 2025-07-09 11:21 | NUR ---
DCP:HOME Pt currently lives at home with her Isrrael Villatoro [phone]. Pt does use a cane at home to ambulate. pt states that she has 27 hrs of provider services and they assist with all ADLs, home management, and meals. PCP is Dr Palm and uses [facility] for any RX needs. At [place] pt will want to go home and family can assist with transportation. Addendum: 07/09/25 at 1123 by NAYELI SIMS SS Amended: Links added.
[2025-07-09] MEDS: HYDROcodone/APAP 5/325 1 TAB TABLET PO PRN (11:32)
[2025-07-09 12:00] VITALS: BP 103/64; PULSE 75; RESP 18; TEMP 98.2
--- NOTE | 2025-07-09 13:36 | PN ---
[facility] PROGRESS NOTE Date Patient Seen: Jul 09, 2025 Time of Visit: 1117 Supervising Physician: Dr. Mckeon Primary Care Physician: Yari Palm Outpatient Specialists: [ ] Inpatient Consults: [ ] PROBLEM LIST: Syncopal episode, likely from orthostatic hypotension, chronic, POA Autonomic dysfunction, likely from uncontrolled diabetes POA Orthostatic hypotension DM type 2, with hyperglycemia, POA Chronic hypotension, on midodrine, POA Hyperlipidemia Gastroparesis as s/p gastric stimulator implant PLAN: Follow up with the orthostatic vital signs Follow up with echocardiogram Follow up with carotid Dopplers Follow up with cortisol level Continue midodrine5 mg t.i.d. INTERVAL HISTORY: 07/09 patient was seen and examined at bedside with family present. Patient is awake alert able to answer simple questions appropriately. Patient denies any chest pain or shortness of breadth. Denies any nausea vomiting or abdominal pain. At this time patient denies any reoccurrence syncope episodes. Patient states this has happened before due to orthostatic hypotension. 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 We will follow up with patient's echocardiogram and carotid Dopplers. At this time we will order a cortisol level. We will follow up in a.m. REVIEW OF SYSTEMS: 12 point ROS reviewed with patient. Pertinent positives mentioned above. Otherwise negative. PHYSICAL EXAM: GENERAL: alert, weak, awake oriented x 3 HEENT: EOMI, Sclera non icteric, moist mucosa NECK: Supple, no JVD, trachea midline LUNGS: Clear breath sounds bilaterally. No wheezes HEART: Regular rate and rhythm. Normal S1 and S2, without murmurs ABD: Abdomen soft, nontender. Bowel sounds present EXT: No clubbing cyanosis or edema NEURO: Alert and oriented to person, follows commands Vital Signs (last 8hr) Date Time Temp Pulse Resp B/P (MAP) Pulse Ox O2 Delivery O2 Flow Rate FiO2 07/09/25 12:15 Room Air* 0 21 07/09/25 12:00 98.2 75 18 103/64 100 Room Air 07/09/25 08:00 98.2 76 15 115/62 94 Room Air 128/65 148/98 07/09/25 06:26 18 N/A Room Air 21 LABS: Hematology Labs: Test 07/09/25 05:36 Range/Units White Blood Count 9.7 4.8-10.8 K/uL Red Blood Count 4.03 4.00-5.50 MIL/uL Hemoglobin 12.0 12.0-16.0 g/dL Hematocrit 36.3 36-48 % Mean Corpuscular Volume 90.1 79-99 fL Mean Corpuscular Hemoglobin 29.8 27.0-33.0 pg Mean Corpuscular Hemoglobin Concent 33.1 32.0-36.0 g/dL Red Cell Distribution Width 13.1 11.0-15.5 % Platelet Count 301 130-400 K/uL Mean Platelet Volume 10.0 7.5-10.5 fL Immature Granulocyte % (Auto) 0.1 0-1 % Neutrophils (%) (Auto) 44.2 40.0-77.0 % Lymphocytes (%) (Auto) 44.5 21.0-51.0 % Monocytes (%) (Auto) 6.2 3.0-13.0 % Eosinophils (%) (Auto) 4.4 0.0-8.0 % Basophils (%) (Auto) 0.6 0.0-5.0 % Neutrophils # (Auto) 4.3 1.8-7.7 K/uL Lymphocytes # (Auto) 4.3 1.0-4.8 K/uL Monocytes # (Auto) 0.6 0.1-1.0 K/uL Eosinophils # (Auto) 0.42 0.00-0.70 K/uL Basophils # (Auto) 0.06 0.00-0.20 K/uL Absolute Immature Granulocyte (auto 0.01 0-1 K/uL Nucleated Red Blood Cells 0.0 0.0-0.19 % Chemistry Labs: Test 07/09/25 11:24 07/09/25 05:36 07/08/25 16:28 Range/Units Whole Blood Glucose 111 H 70-110 MG/DL Sodium Level 143 136-145 mmol/L Potassium Level 3.9 3.5-5.1 mmol/L Chloride Level 107 101-111 mmol/L Carbon Dioxide Level 27 21-32 mmol/L Blood Urea Nitrogen 9 7-18 mg/dL Creatinine 0.3 L 0.5-1.0 mg/dL Glomerular Filtration Rate Calc 123 >90 mL/min Random Glucose 103 70-105 mg/dL Total Calcium 8.8 8.5-10.1 mg/dL Phosphorus Level 4.1 2.5-4.9 mg/dL Magnesium Level 2.00 1.80-2.40 mg/dL Total Creatine Kinase 26 # 21-232 U/L Troponin I High Sensitivity < 4 L 4-50 ng/L Coagulation Labs: Test 07/08/25 16:28 Range/Units Activated Partial Thromboplast Time 25.9 L 26.3-35.5 SEC DIAGNOSTICS / RADIOLOGY RESULTS: na PLAN NEURO: Minimize central acting medications as possible. Maintain fall precautions, adequate lighting during the day PULMONARY: Supplemental 02 as needed. Maintain aspiration precautions at all times CARDIOVASCULAR: Follow hemodynamics. Vital signs per facility protocol GI & NUTRITION: Continue with nutritional support. Continue stool softeners and laxatives as needed. KIDNEYS & ELECTROLYTES: Strict monitoring of intake, output and overall fluid balance. Avoid nephrotoxic medications to the extent possible. Medications to be dosed according to renal function. Monitor electrolytes and replace as needed ENDOCRINE: Maintain blood glucose between 100-180 at all times. Hypoglycemia protocol in place INFECTIOUS DISEASE: Trend temperature, WBC and procalcitonin level Follow cultures, deescalate antibiotics as soon as possible. Panculture if new onset fever ONCOLOGY/HEMATOLOGY/COAGULATION: Monitor for s/s of bleeding Monitor hemoglobin, coagulation studies as needed SKIN: Pressure ulcer prevention per facility protocol Specialty mattress ORTHO/REHAB: Continue PT/OT Prophylaxis: Continue GI and DVT prophylaxis Code Status: Full Resuscitation Disposition: TBD Case discussed with supervising physician plan of care agreed upon CECILIA MCINTOSH Jul 09, 2025 13:36
[2025-07-09 16:00] VITALS: BP 90/59; PULSE 74; RESP 16; TEMP 97.8
--- NOTE | 2025-07-09 19:32 | HMCSR ---
APPROVED REPORT EXAM: Two-dimensional and M-mode echocardiogram with Doppler and color Doppler. INDICATION ICD: Syncope 2D Dimensions RVDd3.5 cmLVEF(%)70.3 (>50%)LVED Vol(simp.)52.8 mL IVSd0.8 (0.7-1.1cm)FS(%)39 %LVES Vol(simp.)26.9 mL LVDd3.9 (3.8-5.6cm)LA (2D)3.3 (1.6-4.0cm)LVEF(%, simp.)49 % PWd0.9 (0.7-1.1cm)Ao Root(2D)2.6 (2.0-3.7cm)LA ESV INDEX (BP)26.10 mL/m2 LVDs2.3 (2.5-4.0cm)LVOT diam1.9 (1.8-2.4cm) IVC diam1.7 cm Deformation Strain Apical 4-18.0 % Apical 2-18.1 % Apical 3-16.0 % Global Strain-17.4 % M-Mode Dimensions LA (MM)3.4 (1.6-4.0cm) Ao Root(MM)2.3 (2.0-3.7cm) Aortic Valve AoV Vmax1.6 m/Grace Peak GR10.1 mmHgLVOT Vmax1.1 m/s AoV VTI0.4 mAo Mean GR5.8 mmHgLVOT VTI0.23 m DAIJA (VMAX)1.83 cm2AVA (VTI) 1.7 cm2 Mitral Valve MV E Vmax77.9 cm/sDECEL Dblf835 ms MV A Vmax56.0 cm/sP 1/2 T91 ms E/A ratio1.4MVA (PHT)2.4 cm2 TDI E/E' Fgmner48.1E/E' Lateral9.0 Medial E' Peak V7.72 cm/sLateral E' Peak V8.66 cm/s Pulmonary Valve PV Vmax0.9 m/sPV VTI0.21 mPV Mean GR2.0 mmHg PV Peak GR3.5 mmHg Left Ventricle The left ventricle is normal size. There is normal LV segmental wall motion. There is normal left zain tricular wall thickness. LVEF is > 55%. GLS is normal at -17%. The left ventricular diastolic functio n is normal. Right Ventricle The right ventricle is normal size. The right ventricular systolic function is normal. Atria The left atrium size is normal. The right atrium size is normal. Aortic Valve The aortic valve is trileaflet and normal in structure. No aortic regurgitation is present. There is no aortic valvular stenosis. Mitral Valve The mitral valve is normal in structure. There is no mitral valve regurgitation noted. There is no mi tral valve stenosis. Tricuspid Valve The tricuspid valve is normal in structure. There is no tricuspid valve regurgitation noted. Pulmonic Valve The pulmonary valve is normal in structure. There is no pulmonic valvular regurgitation. Great Vessels The aortic root is normal in size. The IVC is normal in size and collapses >50% with inspiration. Pericardium There is no pericardial effusion. Conclusion The left atrium size is normal. There is normal left ventricular wall thickness. There is normal LV segmental wall motion. LVEF is > 55%. GLS is normal at -17%. The left ventricular diastolic function is normal. The aortic valve is trileaflet and normal in structure. There is no mitral valve regurgitation noted. There is no pericardial effusion.
[2025-07-09 20:00] VITALS: BP_SYST 110; BP_SYST 119; BP_SYST 99; BP_DIAS 61; BP_DIAS 63; BP_DIAS 64; PULSE 73; PULSE 78; RESP 18; TEMP 98.7; O2SAT 98
--- NOTE | 2025-07-09 20:07 | HMCIMG ---
EXAM: US Duplex Bilateral Carotid and Vertebral Arteries. CLINICAL HISTORY: Syncope. TECHNIQUE: Grayscale imaging with color Doppler and pulsed-wave spectral Doppler was performed of the common carotid, internal carotid, and external carotid arteries bilaterally, with evaluation of the vertebral arteries in the neck where visualized. Doppler angles were maintained at or below 60 degrees where possible. Note: Per PQRS, velocity criteria are extrapolated from diameter data as defined by the Society of Radiologists in Ultrasound Consensus Conference (Radiology 2003; 229; 340-346). COMPARISON: None provided. FINDINGS: RIGHT COMMON CAROTID ARTERY: The right common carotid artery peak systolic velocity is approximately 58 centimeters per second. RIGHT INTERNAL CAROTID ARTERY: The right internal carotid artery peak systolic velocity is approximately 124 centimeters per second. The right internal carotid artery shows hemodynamically no more than mild stenosis, approximately 1-49%, based on a peak systolic velocity just below 125 centimeters per second. Correlate with grayscale plaque imaging if available. RIGHT EXTERNAL CAROTID ARTERY: The right external carotid artery peak systolic velocity is approximately 111 centimeters per second in a tortuous segment. RIGHT VERTEBRAL ARTERY: The right vertebral artery demonstrates antegrade flow with a peak systolic velocity of approximately 53 centimeters per second. RIGHT ICA/CCA RATIO: The right internal carotid to common carotid peak systolic velocity ratio is approximately 2.1. This ratio is borderline elevated and may be influenced by vessel tortuosity. LEFT COMMON CAROTID ARTERY: The left common carotid artery peak systolic velocity is approximately 82 centimeters per second. LEFT INTERNAL CAROTID ARTERY: The left internal carotid artery peak systolic velocity is approximately 95 centimeters per second. The left internal carotid artery shows no sonographic evidence of hemodynamically significant stenosis, with a peak systolic velocity less than 125 centimeters per second. LEFT EXTERNAL CAROTID ARTERY: The left external carotid artery was not visualized on this examination, limiting the complete assessment of that vessel. LEFT VERTEBRAL ARTERY: The left vertebral artery peak systolic velocity is approximately 68 centimeters per second; however, the flow direction was not documented in the provided data. The left vertebral artery velocity is within an expected range. LEFT ICA/CCA RATIO: The left internal carotid to common carotid peak systolic velocity ratio is approximately 1.2. SOFT TISSUES: No incidental abnormalities. IMPRESSION: 1. Mild right internal carotid artery stenosis (approximately 1???49%) 2. No hemodynamically significant left internal carotid artery stenosis 3. Right vertebral artery with antegrade flow; left vertebral artery flow direction not documented 4. Limited assessment of the left external carotid artery due to nonvisualization /[place]
[2025-07-09] MEDS: GABAPENTIN 300 MG CAPSULE PO SCH (20:37)
[2025-07-10] VITALS (12 sets, daily range): BP systolic 100–131; BP diastolic 46–78; PULSE 64–84; RESP 15–20; TEMP 97.7–98.5; O2SAT 94–98
[2025-07-10] MEDS: CYANOCOBALAMIN (VITAMIN B-12) 1,000 MCG TABLET PO SCH (08:49)
[2025-07-10] MEDS: EMPAGLIFLOZIN 25MG TABLET PO SCH (08:49)
[2025-07-10 11:11] LABS: NUCLEATED RED BLOOD CELLS 0.0 % (0.0-0.19); PLATELET COUNT (AUTO) 305.0 K/uL (130-400); RED BLOOD CELL COUNT(AUTO) 4.21 MIL/uL (4.00-5.50); RED CELL DISTRIBUTION WIDTH 13.2 % (11.0-15.5); WHITE BLOOD COUNT (AUTO) 8.4 K/uL (4.8-10.8)
[2025-07-10 11:23] LABS: ASPARTATE AMINOTRANSFERASE 19.0 U/L (10-37); CREATININE 0.4 mg/dL (0.5-1.0); GLOMERULAR FILTR. RATE CALC 115.0 mL/min (>90); GLUCOSE,RANDOM 131.0 mg/dL (70-105); SODIUM SERUM 143.0 mmol/L (136-145); TOTAL PROTEIN, SERUM 6.9 g/dL (6.0-8.3); UREA NITROGEN, BLOOD 20.0 mg/dL (7-18)
--- NOTE | 2025-07-10 22:33 | PN ---
[facility] PROGRESS NOTE Date Patient Seen: Jul 10, 2025 Time of Visit: 22:33 Supervising Physician: Dr. Lalo Lao Primary Care Physician: Yari Palm Outpatient Specialists: [ ] Inpatient Consults: [ ] PROBLEM LIST: Syncopal episode, likely from orthostatic hypotension, chronic, POA Autonomic dysfunction, likely from uncontrolled diabetes POA Orthostatic hypotension DM type 2, with hyperglycemia, POA Chronic hypotension, on midodrine, POA Hyperlipidemia Gastroparesis as s/p gastric stimulator implant PLAN: Orthostatic vital signs t.i.d. Ordered CTA head and neck Continue with midodrine 5 mg p.o. t.i.d. Telemetry monitoring Continue with DVT/GI prophylaxis INTERVAL HISTORY: 07/09 patient was seen and examined at bedside with family present. Patient is awake alert able to answer simple questions appropriately. Patient denies any chest pain or shortness of breadth. Denies any nausea vomiting or abdominal pain. At this time patient denies any reoccurrence syncope episodes. Patient states this has happened before due to orthostatic hypotension. 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 We will follow up with patient's echocardiogram and carotid Dopplers. At this time we will order a cortisol level. We will follow up in a.m. 07/10-the patient was seen and assessed, examined by myself with patient's spouse present during my assessment. Awake, alert, and oriented x3 and in no acute distress. Reviewed and discussed patient's chart with patient's bedside nurse. Reviewed and discussed with patient and spouse at bedside diagnostic tests re sults echocardiogram LVEF less than 55%, carotid ultrasounds, (right stenosis at 49%, and laboratory results with vital signs. Vital signs stable. Afebrile Ordering CTA of head/neck to assess vertebral arteries for possible stenosis REVIEW OF SYSTEMS: 12 point ROS reviewed with patient. Pertinent positives mentioned above. Otherwise negative. PHYSICAL EXAM: GENERAL: alert, weak, awake oriented x 3 HEENT: EOMI, Sclera non icteric, moist mucosa NECK: Supple, no JVD, trachea midline LUNGS: Clear breath sounds bilaterally. No wheezes HEART: Regular rate and rhythm. Normal S1 and S2, without murmurs ABD: Abdomen soft, nontender. Bowel sounds present EXT: No clubbing cyanosis or edema NEURO: Alert and oriented to person, follows commands Vital Signs (last 8hr) Date Time Temp Pulse Resp B/P (MAP) Pulse Ox O2 Delivery O2 Flow Rate FiO2 07/10/25 19:44 82 128/71 Room Air 07/10/25 19:41 81 131/78 Room Air 07/10/25 19:40 97.7 75 20 118/72 94 Room Air 07/10/25 19:13 72 18 N/A Room Air 21 07/10/25 16:00 98.2 84 16 123/74 100 LABS: Hematology Labs: Test 07/10/25 08:34 07/09/25 05:36 Range/Units White Blood Count 8.4 4.8-10.8 K/uL Red Blood Count 4.21 4.00-5.50 MIL/uL Hemoglobin 12.7 12.0-16.0 g/dL Hematocrit 38.8 36-48 % Mean Corpuscular Volume 92.2 79-99 fL Mean Corpuscular Hemoglobin 30.2 27.0-33.0 pg Mean Corpuscular Hemoglobin Concent 32.7 32.0-36.0 g/dL Red Cell Distribution Width 13.2 11.0-15.5 % Platelet Count 305 130-400 K/uL Mean Platelet Volume 10.6 H 7.5-10.5 fL Nucleated Red Blood Cells 0.0 0.0-0.19 % Immature Granulocyte % (Auto) 0.1 0-1 % Neutrophils (%) (Auto) 44.2 40.0-77.0 % Lymphocytes (%) (Auto) 44.5 21.0-51.0 % Monocytes (%) (Auto) 6.2 3.0-13.0 % Eosinophils (%) (Auto) 4.4 0.0-8.0 % Basophils (%) (Auto) 0.6 0.0-5.0 % Neutrophils # (Auto) 4.3 1.8-7.7 K/uL Lymphocytes # (Auto) 4.3 1.0-4.8 K/uL Monocytes # (Auto) 0.6 0.1-1.0 K/uL Eosinophils # (Auto) 0.42 0.00-0.70 K/uL Basophils # (Auto) 0.06 0.00-0.20 K/uL Absolute Immature Granulocyte (auto 0.01 0-1 K/uL Chemistry Labs: Test 07/10/25 19:45 07/10/25 08:34 07/09/25 05:36 Range/Units Whole Blood Glucose 163 #H 70-110 MG/DL Sodium Level 143 136-145 mmol/L Potassium Level 3.9 3.5-5.1 mmol/L Chloride Level 105 101-111 mmol/L Carbon Dioxide Level 29 21-32 mmol/L Blood Urea Nitrogen 20 H 7-18 mg/dL Creatinine 0.4 L 0.5-1.0 mg/dL Glomerular Filtration Rate Calc 115 >90 mL/min Random Glucose 131 H 70-105 mg/dL Total Calcium 9.0 8.5-10.1 mg/dL Total Bilirubin 0.4 0.2-1.0 mg/dL Aspartate Amino Transf (AST/SGOT) 19 10-37 U/L Alanine Aminotransferase (ALT/SGPT) 18 12-78 U/L Alkaline Phosphatase 58 50-136 U/L Total Protein 6.9 6.0-8.3 g/dL Albumin 3.3 L 3.5-5.0 g/dL Phosphorus Level 4.1 2.5-4.9 mg/dL Magnesium Level 2.00 1.80-2.40 mg/dL DIAGNOSTICS / RADIOLOGY RESULTS: REASON: Syncope ORDERING PHYSICIAN: CECILIA MCINTOSH PROCEDURE: ECHO CMP - ECHO 2-D COMPLETE APPROVED REPORT EXAM: Two-dimensional and M-mode echocardiogram with Doppler and color Doppler. INDICATION ICD: Syncope 2D Dimensions RVDd 3.5 cm LVEF(%) 70.3 (>50%) LVED Vol(simp.) 52.8 mL IVSd 0.8 (0.7-1.1cm) FS(%) 39 % LVES Vol(simp.) 26.9 mL LVDd 3.9 (3.8-5.6cm) LA (2D) 3.3 (1.6-4.0cm) LVEF(%, simp.) 49 % PWd 0.9 (0.7-1.1cm) Ao Root(2D) 2.6 (2.0-3.7cm) LA ESV INDEX (BP) 26.10 mL/m2 LVDs 2.3 (2.5-4.0cm) LVOT diam 1.9 (1.8-2.4cm) IVC diam 1.7 cm Deformation Strain Apical 4 -18.0 % Apical 2 -18.1 % Apical 3 -16.0 % Global Strain -17.4 % M-Mode Dimensions LA (MM) 3.4 (1.6-4.0cm) Ao Root(MM) 2.3 (2.0-3.7cm) Aortic Valve AoV Vmax 1.6 m/s Ao Peak GR 10.1 mmHg LVOT Vmax 1.1 m/s AoV VTI 0.4 m Ao Mean GR 5.8 mmHg LVOT VTI 0.23 m DAIJA (VMAX) 1.83 cm2 DAIJA (VTI) 1.7 cm2 Mitral Valve MV E Vmax 77.9 cm/s DECEL Time 229 ms MV A Vmax 56.0 cm/s P 1/2 T 91 ms E/A ratio 1.4 MVA (PHT) 2.4 cm2 TDI E/E' Medial 10.1 E/E' Lateral 9.0 Medial E' Peak V 7.72 cm/s Lateral E' Peak V 8.66 cm/s Pulmonary Valve PV Vmax 0.9 m/s PV VTI 0.21 m PV Mean GR 2.0 mmHg PV Peak GR 3.5 mmHg Left Ventricle The left ventricle is normal size. There is normal LV segmental wall motion. There is normal left ventricular wall thickness. LVEF is > 55%. GLS is normal at -17%. The left ventricular diastolic function is normal. Right Ventricle The right ventricle is normal size. The right ventricular systolic function is normal. Atria The left atrium size is normal. The right atrium size is normal. Aortic Valve The aortic valve is trileaflet and normal in structure. No aortic regurgitation is present. There is no aortic valvular stenosis. Mitral Valve The mitral valve is normal in structure. There is no mitral valve regurgitation noted. There is no mitral valve stenosis. Tricuspid Valve The tricuspid valve is normal in structure. There is no tricuspid valve regurgitation noted. Pulmonic Valve The pulmonary valve is normal in structure. There is no pulmonic valvular regurgitation. Great Vessels The aortic root is normal in size. The IVC is normal in size and collapses >50% with inspiration. Pericardium There is no pericardial effusion. Conclusion The left atrium size is normal. There is normal left ventricular wall thickness. There is normal LV segmental wall motion. LVEF is > 55%. GLS is normal at -17%. The left ventricular diastolic function is normal. The aortic valve is trileaflet and normal in structure. There is no mitral valve regurgitation noted. There is no pericardial effusion. DICTATED BY: NICK LEON MD DATE: 07/09/25 1537 ELECTRONICALLY SIGNED BY: NICK LEON MD DATE: 07/09/25 193 REASON: Syncope ORDERING PHYSICIAN: CECILIA MCINTOSH MOLD BUILDER PROCEDURE: CAROTID - US CAROTID DUPLEX EXAM: US Duplex Bilateral Carotid and Vertebral Arteries. CLINICAL HISTORY: Syncope. TECHNIQUE: Grayscale imaging with color Doppler and pulsed-wave spectral Doppler was performed of the common carotid, internal carotid, and external carotid arteries bilaterally, with evaluation of the vertebral arteries in the neck where visualized. Doppler angles were maintained at or below 60 degrees where possible. Note: Per PQRS, velocity criteria are extrapolated from diameter data as defined by the Society of Radiologists in Ultrasound Consensus Conference (Radiology 2003; 229; 340-346). COMPARISON: None provided. FINDINGS: RIGHT COMMON CAROTID ARTERY: The right common carotid artery peak systolic velocity is approximately 58 centimeters per second. RIGHT INTERNAL CAROTID ARTERY: The right internal carotid artery peak systolic velocity is approximately 124 centimeters per second. The right internal carotid artery shows hemodynamically no more than mild stenosis, approximately 1-49%, based on a peak systolic velocity just below 125 centimeters per second. Correlate with grayscale plaque imaging if available. RIGHT EXTERNAL CAROTID ARTERY: The right external carotid artery peak systolic velocity is approximately 111 centimeters per second in a tortuous segment. RIGHT VERTEBRAL ARTERY: The right vertebral artery demonstrates antegrade flow with a peak systolic velocity of approximately 53 centimeters per second. RIGHT ICA/CCA RATIO: The right internal carotid to common carotid peak systolic velocity ratio is approximately 2.1. This ratio is borderline elevated and may be influenced by vessel tortuosity. LEFT COMMON CAROTID ARTERY: The left common carotid artery peak systolic velocity is approximately 82 centimeters per second. LEFT INTERNAL CAROTID ARTERY: The left internal carotid artery peak systolic velocity is approximately 95 centimeters per second. The left internal carotid artery shows no sonographic evidence of hemodynamically significant stenosis, with a peak systolic velocity less than 125 centimeters per second. LEFT EXTERNAL CAROTID ARTERY: The left external carotid artery was not visualized on this examination, limiting the complete assessment of that vessel. LEFT VERTEBRAL ARTERY: The left vertebral artery peak systolic velocity is approximately 68 centimeters per second; however, the flow direction was not documented in the provided data. The left vertebral artery velocity is within an expected range. LEFT ICA/CCA RATIO: The left internal carotid to common carotid peak systolic velocity ratio is approximately 1.2. SOFT TISSUES: No incidental abnormalities. IMPRESSION: 1. Mild right internal carotid artery stenosis (approximately 1???49%) 2. No hemodynamically significant left internal carotid artery stenosis 3. Right vertebral artery with antegrade flow; left vertebral artery flow direction not documented 4. Limited assessment of the left external carotid artery due to nonvisualization /[place] DICTATED BY: HERMILA ALVARES MD DATE: 07/09/252105 ELECTRONICALLY SIGNED BY: HERMILA ALVARES MD DATE: 07/09/252105 PLAN NEURO: Minimize central acting medications as possible. Maintain fall precautions, adequate lighting during the day PULMONARY: Supplemental 02 as needed. Maintain aspiration precautions at all times CARDIOVASCULAR: Follow hemodynamics. Vital signs per facility protocol GI & NUTRITION: Continue with nutritional support. Continue stool softeners and laxatives as needed. KIDNEYS & ELECTROLYTES: Strict monitoring of intake, output and overall fluid balance. Avoid nephrotoxic medications to the extent possible. Medications to be dosed according to renal function. Monitor electrolytes and replace as needed ENDOCRINE: Maintain blood glucose between 100-180 at all times. Hypoglycemia protocol in place INFECTIOUS DISEASE: Trend temperature, WBC and procalcitonin level Follow cultures, deescalate antibiotics as soon as possible. Panculture if new onset fever ONCOLOGY/HEMATOLOGY/COAGULATION: Monitor for s/s of bleeding Monitor hemoglobin, coagulation studies as needed SKIN: Pressure ulcer prevention per facility protocol Specialty mattress ORTHO/REHAB: Continue PT/OT Prophylaxis: Continue GI and DVT prophylaxis Code Status: Full Resuscitation Disposition: TBD Case discussed with supervising physician plan of care agreed upon MALIA GONZÁLES AGACNP Jul 10, 2025 22:33
[2025-07-11] VITALS (10 sets, daily range): BP systolic 94–114; BP diastolic 55–67; PULSE 68–82; RESP 16–20; TEMP 98.1–98.3; O2SAT 95–98
[2025-07-11] MEDS ORDERED: IOHEXOL-350 75 ML VIAL IV ONE (00:29)
[2025-07-11 05:24] LABS: NUCLEATED RED BLOOD CELLS 0.0 % (0.0-0.19); PLATELET COUNT (AUTO) 297.0 K/uL (130-400); RED BLOOD CELL COUNT(AUTO) 4.22 MIL/uL (4.00-5.50); RED CELL DISTRIBUTION WIDTH 12.7 % (11.0-15.5); WHITE BLOOD COUNT (AUTO) 7.8 K/uL (4.8-10.8)
[2025-07-11 05:46] LABS: ASPARTATE AMINOTRANSFERASE 14.0 U/L (10-37); CREATININE 0.4 mg/dL (0.5-1.0); GLOMERULAR FILTR. RATE CALC 115.0 mL/min (>90); GLUCOSE,RANDOM 108.0 mg/dL (70-105); SODIUM SERUM 141.0 mmol/L (136-145); TOTAL PROTEIN, SERUM 6.9 g/dL (6.0-8.3); UREA NITROGEN, BLOOD 23.0 mg/dL (7-18)
--- NOTE | 2025-07-11 08:31 | HMCIMG ---
EXAM: CTA Head and Neck with and without Intravenous Contrast. CLINICAL HISTORY: Assess the vertebral artery TECHNIQUE: Axial CTA images of the head and neck were performed with and without intravenous contrast in the arterial phase. Coronal and sagittal reformatted images were generated and reviewed. 3-D reformatted images generated on an independent workstation were also reviewed. NASCET criteria were used in the assessment of stenosis. CONTRAST: Omnipaque 350. COMPARISON: CT brain dated 07/08/2025 FINDINGS: VASCULATURE: NECK: COMMON CAROTID ARTERIES No significant stenosis. No dissection or occlusion. EXTERNAL CAROTID ARTERIES Patent. INTERNAL CAROTID ARTERIES Atherosclerotic intimal thickening in the right proximal internal carotid artery, causing 5%-10% stenosis. Eccentric non-stenotic calcified plaques in the cavernous and supraclinoid segments of the bilateral internal carotid arteries. No stenosis by NASCET criteria. No dissection or occlusion. VERTEBRAL ARTERIES No significant stenosis. No dissection or occlusion. HEAD: ANTERIOR CEREBRAL ARTERIES No significant stenosis. No occlusion. No aneurysm. MIDDLE CEREBRAL ARTERIES No significant stenosis. No occlusion. No aneurysm. POSTERIOR CEREBRAL ARTERIES No significant stenosis. No occlusion. No aneurysm. BASILAR ARTERY No significant stenosis. No occlusion. No aneurysm. No abnormal enhancing lesion in the supratentorial or infratentorial brain parenchyma. OTHER: Linear atelectasis in the left lung apex. SOFT TISSUES No acute finding. BONES No acute osseous abnormality. IMPRESSION: Normal contrast opacification of the intracranial arteries. No significant narrowing or occlusion. No evidence of any aneurysm greater than 4 mm or arteriovenous lesion. Subtle atherosclerotic calcification of the aortic arch. No significant narrowing of the extracranial arteries. Normal contrast opacification of the bilateral common carotid, internal, and external carotid and vertebral arteries. /[place]
--- NOTE | 2025-07-11 14:00 | DS ---
[facility] DISCHARGE SUMMARY Date Patient Seen: Jul 11, 2025 Time of Visit: 13:44 Supervising Physician: Dr. Rita Lao Primary Care Physician: Yari Palm Outpatient Specialists: [ ] Inpatient Consults: [ ] PROBLEM LIST: Syncopal episode, likely from orthostatic hypotension, chronic, POA Autonomic dysfunction, likely from uncontrolled diabetes POA Orthostatic hypotension DM type 2, with hyperglycemia, POA Chronic hypotension, on midodrine, POA Hyperlipidemia Gastroparesis as s/p gastric stimulator implant PLAN: Orthostatic vital signs t.i.d. Ordered CTA head and neck Continue with midodrine 5 mg p.o. t.i.d. Telemetry monitoring Continue with DVT/GI prophylaxis HOSPITAL COURSE: 07/09 patient was seen and examined at bedside with family present. Patient is awake alert able to answer simple questions appropriately. Patient denies any chest pain or shortness of breadth. Denies any nausea vomiting or abdominal pain. At this time patient denies any reoccurrence syncope episodes. Patient states this has happened before due to orthostatic hypotension. 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 We will follow up with patient's echocardiogram and carotid Dopplers. At this time we will order a cortisol level. We will follow up in a.m. 07/10-the patient was seen and assessed, examined by myself with patient's spouse present during my assessment. Awake, alert, and oriented x3 and in no acute distress. Reviewed and discussed patient's chart with patient's bedside nurse. Reviewed and discussed with patient and spouse at bedside diagnostic tests results echocardiogram LVEF less than 55%, carotid ultrasounds, (right stenosis at 49%, and laboratory results with vital signs. Vital signs stable. Afebrile 07/11- The patient was seen and assessed examined while resting in bed with the head of the bed elevated. Patient's spouse is nearby. Patient is hemodynamically stable reviewed and discussed with patient the results from CTA head/neck there is no occlusion or stenosis in the internal arteries or aneurysm present. The patient will be continue on midodrine5 mg p.o. b.i.d. 30 days, 60 tablets we will be prescribed to the patient. Patient is medically stable and can be discharged to home follow up with primary care provider. During the patient's hospitalization diagnostic tests performed CTA/head and nec k, echocardiogram results: LVEF less than 55%, CT head without contrast no acute infarcts or disease process observed patient has been remained normotensive blood pressure has been addressed hypotension with midodrine5 mg p.o. b.i.d.. Patient agrees to follow up with primary care provider within 2-3 days for a wellness check. At this time the patient is medically stable can be discharged home. HPI (per admitting provider) 60-year-old female with past medical history of DM type 2, hyperlipidemia, autonomic dysfunction, orthostatic hypotension, gastroparesis status post gastric stimulator implant who presented to ED with complaint of syncopal episode. Patient was seen and examined in ED with present at bedside. Apparently this is a chronic problem that has been ongoing for almost three years, was previously evaluated by Neurology and underwent tilt-table test and was informed that she has orthostatic hypotension, was also evaluated by Cardiology and underwent rhythm monitoring via loop recorder, with no abnormality seen. Per patient she has been having issues with blood pressure la boris with associated dizziness was prescribed with midodrine by her hse manager and she takes it as needed. Today patient had episode of syncope while she was inside the car. Patient was then brought in by to ER for further medical evaluation. Initial CBC and chemistry were unremarkable, UDS negative for intoxication, CT head and chest x-ray were also unremarkable. In ED patient was given IV bolus, with improvement in her blood pressure. At present patient is currently hemodynamically stable, with SBP above 110 mmHg, normal sinus rhythm on the monitor, GCS 15, denies any headache, chest pain, cough, fever, abdominal pain, diarrhea, or flu-like symptoms. Patient denies any smoking, alcohol intake, or illicit drug use. The patient was treated for the following problems: ACTIVE PROBLEM LIST FOR THE HOSPITALIZATION: Syncopal episode, likely from orthostatic hypotension, chronic, POA, resolved at discharge Autonomic dysfunction, likely from uncontrolled diabetes POA, resolved Orthostatic hypotension, POA, treated and resolved the discharge DM type 2, with hyperglycemia, POA Chronic hypotension, on midodrine, POA CHRONIC PROBLEMS: continue previous management per PCP unless otherwise ind icated Hypertension, diabetes mellitus type II [facility] [employer] [facility] FINDINGS/RECOMMENDATIONS: [ ] PROCEDURES: as mentioned above Diagnostic tests: Ordering CTA of head/neck to assess vertebral arteries for possible stenosis REASON: Assess vertebral artery ORDERING PHYSICIAN: MALIA GONZÁLES [facility] PROCEDURE: CTA [facility] - CT ANGIO HEAD AND NECK EXAM: CTA Head and Neck with and without Intravenous Contrast. CLINICAL HISTORY: Assess the vertebral artery TECHNIQUE: Axial CTA images of the head and neck were performed with and without intravenous contrast in the arterial phase. Coronal and sagittal reformatted images were generated and reviewed. 3-D reformatted images generated on an independent workstation were also reviewed. NASCET criteria were used in the assessment of stenosis. CONTRAST: Omnipaque 350. COMPARISON: CT brain dated 07/08/2025 FINDINGS: VASCULATURE: NECK: COMMON CAROTID ARTERIES No significant stenosis. No dissection or occlusion. EXTERNAL CAROTID ARTERIES Patent. INTERNAL CAROTID ARTERIES Atherosclerotic intimal thickening in the right proximal internal carotid artery, causing 5%-10% stenosis. Eccentric non-stenotic calcified plaques in the cavernous and supraclinoid segments of the bilateral internal carotid arteries. No stenosis by NASCET criteria. No dissection or occlusion. VERTEBRAL ARTERIES No significant stenosis. No dissection or occlusion. HEAD: ANTERIOR CEREBRAL ARTERIES No significant stenosis. No occlusion. No aneurysm. MIDDLE CEREBRAL ARTERIES No significant stenosis. No occlusion. No aneurysm. POSTERIOR CEREBRAL ARTERIES No significant stenosis. No occlusion. No aneurysm. BASILAR ARTERY No significant stenosis. No occlusion. No aneurysm. No abnormal enhancing lesion in the supratentorial or infratentorial brain parenchyma. OTHER: Linear atelectasis in the left lung apex. SOFT TISSUES No acute finding. BONES No acute osseous abnormality. IMPRESSION: Normal contrast opacification of the intracranial arteries. No significant narrowing or occlusion. No evidence of any aneurysm greater than 4 mm or arteriovenous lesion. Subtle atherosclerotic calcification of the aortic arch. No significant narrowing of the extracranial arteries. Normal contrast opacification of the bilateral common carotid, internal, and external carotid and vertebral arteries. /[place] DICTATED BY: ERICKSON JUÁREZ Jr., MD DATE: 07/11/25929 ELECTRONICALLY SIGNED BY: ERICKSON JUÁREZ Jr., MD DATE: 07/11/25929 PATIENT: ANAMKIA LEDEZMA MR#: [id number] : 1965 SEX: F AGE: 60 LOCATION: [facility] ORDER 1008 STATUS: ADM IN REPORT#: [id number] SERVICE 1007 REASON: Syncope ORDERING PHYSICIAN: CECILIA MCINTOSH PROCEDURE: ECHO CMP - ECHO 2-D COMPLETE APPROVED REPORT EXAM: Two-dimensional and M-mode echocardiogram with Doppler and color Doppler. INDICATION ICD: Syncope 2D Dimensions RVDd 3.5 cm LVEF(%) 70.3 (>50%) LVED Vol(simp.) 52.8 mL IVSd 0.8 (0.7-1.1cm) FS(%) 39 % LVES Vol(simp.) 26.9 mL LVDd 3.9 (3.8-5.6cm) LA (2D) 3.3 (1.6-4.0cm) LVEF(%, simp.) 49 % PWd 0.9 (0.7-1.1cm) Ao Root(2D) 2.6 (2.0-3.7cm) LA ESV INDEX (BP) 26.10 mL/m2 LVDs 2.3 (2.5-4.0cm) LVOT diam 1.9 (1.8-2.4cm) IVC diam 1.7 cm Deformation Strain Apical 4 -18.0 % Apical 2 -18.1 % Apical 3 -16.0 % Global Strain -17.4 % M-Mode Dimensions LA (MM) 3.4 (1.6-4.0cm) Ao Root(MM) 2.3 (2.0-3.7cm) Aortic Valve AoV Vmax 1.6 m/s Ao Peak GR 10.1 mmHg LVOT Vmax 1.1 m/s AoV VTI 0.4 m Ao Mean GR 5.8 mmHg LVOT VTI 0.23 m DAIJA (VMAX) 1.83 cm2 DAIJA (VTI) 1.7 cm2 Mitral Valve MV E Vmax 77.9 cm/s DECEL Time 229 ms MV A Vmax 56.0 cm/s P 1/2 T 91 ms E/A ratio 1.4 MVA (PHT) 2.4 cm2 TDI E/E' Medial 10.1 E/E' Lateral 9.0 Medial E' Peak V 7.72 cm/s Lateral E' Peak V 8.66 cm/s Pulmonary Valve PV Vmax 0.9 m/s PV VTI 0.21 m PV Mean GR 2.0 mmHg PV Peak GR 3.5 mmHg Left Ventricle The left ventricle is normal size. There is normal LV segmental wall motion. The re is normal left ventricular wall thickness. LVEF is > 55%. GLS is normal at - 17%. The left ventricular diastolic function is normal. Right Ventricle The right ventricle is normal size. The right ventricular systolic function is normal. Atria The left atrium size is normal. The right atrium size is normal. Aortic Valve The aortic valve is trileaflet and normal in structure. No aortic regurgitation is present. There is no aortic valvular stenosis. Mitral Valve The mitral valve is normal in structure. There is no mitral valve regurgitation noted. There is no mitral valve stenosis. Tricuspid Valve The tricuspid valve is normal in structure. There is no tricuspid valve regurgitation noted. Pulmonic Valve The pulmonary valve is normal in structure. There is no pulmonic valvular regurgitation. Great Vessels The aortic root is normal in size. The IVC is normal in size and collapses >50% with inspiration. Pericardium There is no pericardial effusion. Conclusion The left atrium size is normal. There is normal left ventricular wall thickness. There is normal LV segmental wall motion. LVEF is > 55%. GLS is normal at -17%. The left ventricular diastolic function is normal. The aortic valve is trileaflet and normal in structure. There is no mitral valve regurgitation noted. There is no pericardial effusion. DICTATED BY: NICK ELON MD DATE: 07/09/25 1537 ELECTRONICALLY SIGNED BY: NICK LEON MD DATE: 07/09/25 193 REASON: Syncope ORDERING PHYSICIAN: CECILIA MCINTOSH RESEARCH SPEC PROCEDURE: CAROTID - US CAROTID DUPLEX EXAM: US Duplex Bilateral Carotid and Vertebral Arteries. CLINICAL HISTORY: Syncope. TECHNIQUE: Grayscale imaging with color Doppler and pulsed-wave spectral Doppler was performed of the common carotid, internal carotid, and external carotid arteries bilaterally, with evaluation of the vertebral arteries in the neck where visualized. Doppler angles were maintained at or below 60 degrees where possible. Note: Per PQRS, velocity criteria are extrapolated from diameter data as defined by the Society of Radiologists in Ultrasound Consensus Conference (Radiology 2003; 229; 340-346). COMPARISON: None provided. FINDINGS: RIGHT COMMON CAROTID ARTERY: The right common carotid artery peak systolic velocity is approximately 58 centimeters per second. RIGHT INTERNAL CAROTID ARTERY: The right internal carotid artery peak systolic velocity is approximately 124 centimeters per second. The right internal carotid artery shows hemodynamically no more than mild stenosis, approximately 1-49%, based on a peak systolic velocity just below 125 centimeters per second. Correlate with grayscale plaque imaging if available. RIGHT EXTERNAL CAROTID ARTERY: The right external carotid artery peak systolic velocity is approximately 111 centimeters per second in a tortuous segment. RIGHT VERTEBRAL ARTERY: The right vertebral artery demonstrates antegrade flow with a peak systolic velocity of approximately 53 centimeters per second. RIGHT ICA/CCA RATIO: The right internal carotid to common carotid peak systolic velocity ratio is approximately 2.1. This ratio is borderline elevated and may be influenced by vessel tortuosity. LEFT COMMON CAROTID ARTERY: The left common carotid artery peak systolic velocity is approximately 82 centimeters per second. LEFT INTERNAL CAROTID ARTERY: The left internal carotid artery peak systolic velocity is approximately 95 centimeters per second. The left internal carotid artery shows no sonographic evidence of hemodynamically significant stenosis, with a peak systolic velocity less than 125 centimeters per second. LEFT EXTERNAL CAROTID ARTERY: The left external carotid artery was not visualized on this examination, limiting the complete assessment of that vessel. LEFT VERTEBRAL ARTERY: The left vertebral artery peak systolic velocity is approximately 68 centimeters per second; however, the flow direction was not documented in the provided data. The left vertebral artery velocity is within an expected range. LEFT ICA/CCA RATIO: The left internal carotid to common carotid peak systolic velocity ratio is approximately 1.2. SOFT TISSUES: No incidental abnormalities. IMPRESSION: 1. Mild right internal carotid artery stenosis (approximately 1???49%) 2. No hemodynamically significant left internal carotid artery stenosis 3. Right vertebral artery with antegrade flow; left vertebral artery flow direction not documented 4. Limited assessment of the left external carotid artery due to nonvisualization /[place] DICTATED BY: HERMILA ALVARES MD DATE: 07/09/252105 ELECTRONICALLY SIGNED BY: HERMILA ALVARES MD DATE: 07/09/252105 REASON: headache ORDERING PHYSICIAN: MARGIE ALVARADO MD PROCEDURE: HEAD WO - CT HEAD/BRAIN W/O CONTRAST EXAM: CT Head Without IV contrast. CLINICAL HISTORY: headache TECHNIQUE: Axial computed tomography images of the head/brain without intravenous contrast. COMPARISON: None provided. FINDINGS: BRAIN: No evidence of acute hemorrhage. No mass lesion. No CT evidence for acute territorial infarct. No midline shift or extra-axial collections. VENTRICLES: No hydrocephalus. ORBITS: The orbits are unremarkable. SINUSES AND MASTOIDS: The paranasal sinuses and mastoid air cells are clear. BONES: No fracture. SOFT TISSUES: Unremarkable. IMPRESSION: No acute intracranial abnormality. /[place] DICTATED BY: BOBBY SANTAMARIA MD DATE: 07/08/251833 ELECTRONICALLY SIGNED BY: BOBBY SANTAMARIA MD DATE: 07/08/251833 DISCHARGE MEDICATIONS: Pt hemodynamically stable and afebrile at time of discharge. PCP notified of patients admission, hospital course and discharge. PHYSICAL EXAM: GENERAL: alert, weak, awake oriented x 3 HEENT: EOMI, Sclera non icteric, moist mucosa NECK: Supple, no JVD, trachea midline LUNGS: Clear breath sounds bilaterally. No wheezes HEART: Regular rate and rhythm. Normal S1 and S2, without murmurs ABD: Abdomen soft, nontender. Bowel sounds present EXT: No clubbing cyanosis or edema NEURO: Alert and oriented to person, follows commands Diagnostic tests: Ordering CTA of head/neck to assess vertebral arteries for possible stenosis REASON: Assess vertebral artery ORDERING PHYSICIAN: MALIA GONZÁLES [facility] PROCEDURE: CTA [facility] - CT ANGIO HEAD AND NECK EXAM: CTA Head and Neck with and without Intravenous Contrast. CLINICAL HISTORY: Assess the vertebral artery TECHNIQUE: Axial CTA images of the head and neck were performed with and without intravenous contrast in the arterial phase. Coronal and sagittal reformatted images were generated and reviewed. 3-D reformatted images generated on an independent workstation were also reviewed. NASCET criteria were used in the assessment of stenosis. CONTRAST: Omnipaque 350. COMPARISON: CT brain dated 07/08/2025 FINDINGS: VASCULATURE: NECK: COMMON CAROTID ARTERIES No significant stenosis. No dissection or occlusion. EXTERNAL CAROTID ARTERIES Patent. INTERNAL CAROTID ARTERIES Atherosclerotic intimal thickening in the right proximal internal carotid artery, causing 5%-10% stenosis. Eccentric non-stenotic calcified plaques in the cavernous and supraclinoid segments of the bilateral internal carotid arteries. No stenosis by NASCET criteria. No dissection or occlusion. VERTEBRAL ARTERIES No significant stenosis. No dissection or occlusion. HEAD: ANTERIOR CEREBRAL ARTERIES No significant stenosis. No occlusion. No aneurysm. MIDDLE CEREBRAL ARTERIES No significant stenosis. No occlusion. No aneurysm. POSTERIOR CEREBRAL ARTERIES No significant stenosis. No occlusion. No aneurysm. BASILAR ARTERY No significant stenosis. No occlusion. No aneurysm. No abnormal enhancing lesion in the supratentorial or infratentorial brain parenchyma. OTHER: Linear atelectasis in the left lung apex. SOFT TISSUES No acute finding. BONES No acute osseous abnormality. IMPRESSION: Normal contrast opacification of the intracranial arteries. No significant narrowing or occlusion. No evidence of any aneurysm greater than 4 mm or arteriovenous lesion. Subtle atherosclerotic calcification of the aortic arch. No significant narrowing of the extracranial arteries. Normal contrast opacification of the bilateral common carotid, internal, and external carotid and vertebral arteries. /[place] DICTATED BY: ERICKSON JUÁREZ Jr., MD DATE: 07/11/25929 ELECTRONICALLY SIGNED BY: ERICKSON JUÁREZ Jr., MD DATE: 07/11/25929 PATIENT: ANAMIKA LEDEZMA MR#: [id number] : 1965 SEX: F AGE: 60 LOCATION: [facility] ORDER 1008 STATUS: ADM IN REPORT#: [id number] SERVICE 1007 REASON: Syncope ORDERING PHYSICIAN: CECILIA MCINTOSH PROCEDURE: ECHO CMP - ECHO 2-D COMPLETE APPROVED REPORT EXAM: Two-dimensional and M-mode echocardiogram with Doppler and color Doppler. INDICATION ICD: Syncope 2D Dimensions RVDd 3.5 cm LVEF(%) 70.3 (>50%) LVED Vol(simp.) 52.8 mL IVSd 0.8 (0.7-1.1cm) FS(%) 39 % LVES Vol(simp.) 26.9 mL LVDd 3.9 (3.8-5.6cm) LA (2D) 3.3 (1.6-4.0cm) LVEF(%, simp.) 49 % PWd 0.9 (0.7-1.1cm) Ao Root(2D) 2.6 (2.0-3.7cm) LA ESV INDEX (BP) 26.10 mL/m2 LVDs 2.3 (2.5-4.0cm) LVOT diam 1.9 (1.8-2.4cm) IVC diam 1.7 cm Deformation Strain Apical 4 -18.0 % Apical 2 -18.1 % Apical 3 -16.0 % Global Strain -17.4 % M-Mode Dimensions LA (MM) 3.4 (1.6-4.0cm) Ao Root(MM) 2.3 (2.0-3.7cm) Aortic Valve AoV Vmax 1.6 m/s Ao Peak GR 10.1 mmHg LVOT Vmax 1.1 m/s AoV VTI 0.4 m Ao Mean GR 5.8 mmHg LVOT VTI 0.23 m DAIJA (VMAX) 1.83 cm2 DAIJA (VTI) 1.7 cm2 Mitral Valve MV E Vmax 77.9 cm/s DECEL Time 229 ms MV A Vmax 56.0 cm/s P 1/2 T 91 ms E/A ratio 1.4 MVA (PHT) 2.4 cm2 TDI E/E' Medial 10.1 E/E' Lateral 9.0 Medial E' Peak V 7.72 cm/s Lateral E' Peak V 8.66 cm/s Pulmonary Valve PV Vmax 0.9 m/s PV VTI 0.21 m PV Mean GR 2.0 mmHg PV Peak GR 3.5 mmHg Left Ventricle The left ventricle is normal size. There is normal LV segmental wall motion. There is normal left ventricular wall thickness. LVEF is > 55%. GLS is normal at -17%. The left ventricular diastolic function is normal. Right Ventricle The right ventricle is normal size. The right ventricular systolic function is normal. Atria The left atrium size is normal. The right atrium size is normal. Aortic Valve The aortic valve is trileaflet and normal in structure. No aortic regurgitation is present. There is no aortic valvular stenosis. Mitral Valve The mitral valve is normal in structure. There is no mitral valve regurgitation noted. There is no mitral valve stenosis. Tricuspid Valve The tricuspid valve is normal in structure. There is no tricuspid valve regurgitation noted. Pulmonic Valve The pulmonary valve is normal in structure. There is no pulmonic valvular regurg itation. Great Vessels The aortic root is normal in size. The IVC is normal in size and collapses >50% with inspiration. Pericardium There is no pericardial effusion. Conclusion The left atrium size is normal. There is normal left ventricular wall thickness. There is normal LV segmental wall motion. LVEF is > 55%. GLS is normal at -17%. The left ventricular diastolic function is normal. The aortic valve is trileaflet and normal in structure. There is no mitral valve regurgitation noted. There is no pericardial effusion. DICTATED BY: NICK LEON MD DATE: 07/09/25 153 ELECTRONICALLY SIGNED BY: NICK LEON MD DATE: 07/09/251931 REASON: Syncope ORDERING PHYSICIAN: CECILIA MCINTOSH PROCEDURE: CAROTID - US CAROTID DUPLEX EXAM: US Duplex Bilateral Carotid and Vertebral Arteries. CLINICAL HISTORY: Syncope. TECHNIQUE: Grayscale imaging with color Doppler and pulsed-wave spectral Doppler was performed of the common carotid, internal carotid, and external carotid arteries bilaterally, with evaluation of the vertebral arteries in the neck where visualized. Doppler angles were maintained at or below 60 degrees where possible. Note: Per PQRS, velocity criteria are extrapolated from diameter data as defined by the Society of Radiologists in Ultrasound Consensus Conference (Radiology 2003; 229; 340-346). COMPARISON: None provided. FINDINGS: RIGHT COMMON CAROTID ARTERY: The right common carotid artery peak systolic velocity is approximately 58 centimeters per second. RIGHT INTERNAL CAROTID ARTERY: The right internal carotid artery peak systolic velocity is approximately 124 centimeters per second. The right internal carotid artery shows hemodynamically no more than mild stenosis, approximately 1-49%, based on a peak systolic velocity just below 125 centimeters per second. Correlate with grayscale plaque imaging if available. RIGHT EXTERNAL CAROTID ARTERY: The right external carotid artery peak systolic velocity is approximately 111 centimeters per second in a tortuous segment. RIGHT VERTEBRAL ARTERY: The right vertebral artery demonstrates antegrade flow with a peak systolic velocity of approximately 53 centimeters per second. RIGHT ICA/CCA RATIO: The right internal carotid to common carotid peak systolic velocity ratio is approximately 2.1. This ratio is borderline elevated and may be influenced by vessel tortuosity. LEFT COMMON CAROTID ARTERY: The left common carotid artery peak systolic velocity is approximately 82 centimeters per second. LEFT INTERNAL CAROTID ARTERY: The left internal carotid artery peak systolic velocity is approximately 95 centimeters per second. The left internal carotid artery shows no sonographic evidence of hemodynamically significant stenosis, with a peak systolic velocity less than 125 centimeters per second. LEFT EXTERNAL CAROTID ARTERY: The left external carotid artery was not visualized on this examination, limiting the complete assessment of that vessel. LEFT VERTEBRAL ARTERY: The left vertebral artery peak systolic velocity is approximately 68 centimeters per second; however, the flow direction was not documented in the provided data. The left vertebral artery velocity is within an expected range. LEFT ICA/CCA RATIO: The left internal carotid to common carotid peak systolic velocity ratio is approximately 1.2. SOFT TISSUES: No incidental abnormalities. IMPRESSION: 1. Mild right internal carotid artery stenosis (approximately 1???49%) 2. No hemodynamically significant left internal carotid artery stenosis 3. Right vertebral artery with antegrade flow; left vertebral artery flow direction not documented 4. Limited assessment of the left external carotid artery due to nonvisualization /[place] DICTATED BY: HERMILA ALVARES MD DATE: 07/09/252105 ELECTRONICALLY SIGNED BY: HERMILA ALVARES MD DATE: 07/09/252105 REASON: headache ORDERING PHYSICIAN: MARGIE ALVARADO MD PROCEDURE: HEAD WO - CT HEAD/BRAIN W/O CONTRAST EXAM: CT Head Without IV contrast. CLINICAL HISTORY: headache TECHNIQUE: Axial computed tomography images of the head/brain without intravenous contrast. COMPARISON: None provided. FINDINGS: BRAIN: No evidence of acute hemorrhage. No mass lesion. No CT evidence for acute territorial infarct. No midline shift or extra-axial collections. VENTRICLES: No hydrocephalus. ORBITS: The orbits are unremarkable. SINUSES AND MASTOIDS: The paranasal sinuses and mastoid air cells are clear. BONES: No fracture. SOFT TISSUES: Unremarkable. IMPRESSION: No acute intracranial abnormality. /[place] DICTATED BY: BOBBY SANTAMARIA MD DATE: 07/08/251833 ELECTRONICALLY SIGNED BY: BOBBY SANTAMARIA MD DATE: 07/08/251833 FOLLOW-UP: Follow-up with PCP in 2-3 days RECOMMENDATIONS: See Discharge Instructions This case was seen and discussed with my supervising physician. More than 30 minutes spent on discharge process, including evaluation of the patient, discussion with nursing staff, medication reconciliation and follow-up appointments MALIA GONZÁLES [facility] Jul 11, 2025 14:00
--- NOTE | 2025-07-11 14:37 | NUR ---
D/C INSTRUCTIONS GIVEN AND ACKNOWLEDGED. IV REMOVED
== END 2025-07-11 14:47 | disposition home or self-care (01) | DRG 74 ==
LOC: EDH 16:22 → EDHIP 20:40 → 3CH 22:37
PROVIDERS: ADMIT Internal Medicine; ATTEND Internal Medicine
DX: G90.89 Other disorders of autonomic nervous system (principal); I95.1 Orthostatic hypotension; E11.43 Type 2 diabetes mellitus with diabetic autonomic (poly)neuropathy; E11.65 Type 2 diabetes mellitus with hyperglycemia; G90.4 Autonomic dysreflexia; E78.5 Hyperlipidemia, unspecified; K31.84 Gastroparesis; I10 Essential (primary) hypertension; Z79.899 Other long term (current) drug therapy; Z79.01 Long term (current) use of anticoagulants
CPT/HCPCS: 36415; 70450; 70496; 70498; 71045; 80048; 80053; 80305; 81001; 82533; 82550; 82948; 83735; 84100; 84484; 85025; 85027; 85730; 93005; 93306; 93356; 93880; 96360; 99285; G0378; J7030; Q9967

== ENCOUNTER 2025-07-26 05:42 | Day surgery (SDC) | payer OTHER, MEDICAID ==
[~2025-07-26 05:42] MED LIST changes: +BUSP10TA3 PO; -CELE-146 PO; +DULO60CA64 PO; +HYDR-3421 PO; -OMEP20CA12 PO; +ONDA-245 PO
[2025-07-26] MEDS: 0.9%NACL 1000ML 1,000 ML IV SCH (06:52)
[2025-07-26 06:54] VITALS: BP 109/69; PULSE 67; RESP 18; TEMP 97.1
--- NOTE | 2025-07-26 06:56 | NUR ---
ACTH Stimulating test initiated as per protocol. No adverse effects evident. Patient and SO appear cooperative and without issue. Educated at length on Protocol. Both voiced understanding.
[2025-07-26 07:49] VITALS: BP 106/65; PULSE 65; RESP 16
--- NOTE | 2025-07-26 07:56 | NUR ---
Full and complete discharge instructions given both verbally and in writing. Both Patient and voiced understanding. PIV removed with catheter tip intact. D/C home w/c to pov to home.
== END 2025-07-26 07:59 | disposition home or self-care (01) ==
LOC: DAH 05:42
PROVIDERS: ATTEND Internal Medicine Cardiovascular Disease
DX: E27.40 Unspecified adrenocortical insufficiency (principal); I10 Essential (primary) hypertension; E78.5 Hyperlipidemia, unspecified; E11.42 Type 2 diabetes mellitus with diabetic polyneuropathy; Z79.01 Long term (current) use of anticoagulants; Z79.899 Other long term (current) drug therapy
CPT/HCPCS: 82948; 82533 ×3; 36415; 96374; A4223 ×3; J0834; A4215; A4222; A4221; A4663; A4216; A4606